=== PATIENT | female | born 1950 | race Hispanic/Latino ===

== ENCOUNTER 2021-07-11 16:07 | Inpatient (IN) | payer MEDICARE ==
[2021-07-11 22:35] LABS: Bilirubin,Urine NEG (Negative); Blood,Urine SM (Negative); Color,Urine Amber (Yellow); Mucus,Urine 2+ /HPF
[2021-07-12 06:17] LABS: Basophils % (Auto) 0.4 % (0.0-1.8); Eosinophils % (Auto) 0.3 % (0.0-4.3); Hematocrit 39.7 % (30.3-42.9); Hemoglobin 13.3 gm/dl (10.1-14.3); Lymphocytes # (Auto) 1.9 K/mm3 (1.2-5.4); Lymphocytes % (Auto) 19.7 % (13.4-35.0); Mean Corpuscular HGB Conc 34 % (30-34); Mean Corpuscular Volume 91 fl (79-97); Monocytes # (Auto) 0.9 K/mm3 (0.0-0.8); Monocytes % (Auto) 9.3 % (0.0-7.3); Platelet Count 258 K/mm3 (140-440); Red Blood Count 4.35 M/mm3 (3.65-5.03); Red Cell Distribution Width 14.9 % (13.2-15.2)
[2021-07-12 06:38] LABS: Alanine Aminotransferase 22 units/L (7-56); BUN/Creatinine Ratio 26; Blood Urea Nitrogen 21 mg/dL (7-17); Calcium 9.7 mg/dL (8.4-10.2); HDL Cholesterol 62 mg/dL (40-59); Hemolysis Index 3; LDL Cholesterol,Direct 60 mg/dL (50-130)
--- NOTE | 2021-07-12 10:57 | History and Physical Report ---
GP History & Physical - History of Present Illness Date of admission: 07/11/21 Date of Examination: 07/12/21 Reason for Admission: Danger to self, Failure of Outpatient Treatment, Severe anxiety/depression History of Present Illness: Per Admission note: Pt present with altered mental status exhibiting delusional behavior, hallucinations and tangential speech. Emeterio Allen is a 71y/o female patient I evaluated today. The patient is calm, and cooperative. She is polite and pleasant. As we are walking to her room for me to speak with her, I hear the patient speaking softly to herself. She tells me she was admitted into the hospital because "I wasn't focussing and calling people all different kinds of names." The patient says "I was delusional, seeing demons and waterfalls and fearing voices telling me to do all kinds of stuff." She says "it was scary." The patient tells me "I thought I wanted to kill myself but I realize I got too much to live for." She says the only psych history she has is depression in which she takes celexa. The patient denies any illicit drug use, alcohol or nicotine. 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 Access to guns/weapons: Denies Education: History of Abuse: None reported Legal History: Denies REVIEW OF SYSTEMS Constitutional: Negative for weight loss ENT: Negative for stridor Respiratory: Negative for cough or hemoptysis All other systems reviewed and are negative MENTAL STATUS EXAMINATION General Appearance and Behavior: Age appropriate, good hygiene, wearing appropriate clothes, good eye contact Cooperation: Participating/engaged, but Guarded Psychomotor Behavior: Psychomotor normal Mood: better Affect and affective range: Congruent with mood Thought Process: circumstantial Thought Content: hallucinations Speech: Normal rate, volume and rhythm Intellectual Functioning: Average 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 Patient enrolled in individual and group therapeutic sessions and encouraged to attend. Patient provided with a safe and structured environment. Patient's physical health needs will be addressed by the Hospitalist. Hospitalist Consulted Labs including CBC, CMP, Lipid profile and Hemoglobin A1C levels ordered for baseline reference Social Assessment will be completed and the Ediphone Operator will work with patient and family to ensure a suitable and safe disposition Medication adjustment will be made as clinically indicated Restarted home meds Increased Home Risperidone 0.5mg po BID Usual Wellness [place]odaism/Preservation: - Start Trazodone 50 mg po QHS & 50 mg po QHS PRN between 10 PM & 2 AM for insomnia - Start Melatonin 5 mg po QHS to promote circadian rhythm The patient agreed on the treatment plan, understood the risk, benefit, alternative treatment, potential consequence of no treatment, and gave informed consent. Estimated days: 5 Post hospital care: primary care provider, psychiatric provider Case staffed with Dr. Waller Legal Status: Voluntary Reaction to Hospitalization: Accepting Medications and Allergies Allergies Allergy/AdvReac Type Severity Reaction Status Date / Time latex Allergy Unknown Verified 07/11/21 18:48 Home Medications Medication Instructions Recorded Confirmed Last Taken Type Levothyroxine [Synthroid] 25 mcg PO QAM 07/11/21 07/11/21 Unknown History Sertraline [Zoloft] 50 mg PO QDAY 07/11/21 07/11/21 Unknown History Simvastatin 10 mg PO HS 07/11/21 07/11/21 Unknown History hydroCHLOROthiazide [HCTZ] 25 mg PO DAILY 07/11/21 07/11/21 Unknown History risperiDONE [RisperDAL] 0.5 mg PO HS 07/11/21 07/11/21 Unknown History Results - Results Labs/Vitals: Laboratory Last Values WBC 9.9 K/mm3 (4.5-11.0) 07/12/21 05:52 RBC 4.35 M/mm3 (3.65-5.03) 07/12/21 05:52 Hgb 13.3 gm/dl (10.1-14.3) 07/12/21 05:52 Hct 39.7 % (30.3-42.9) 07/12/21 05:52 MCV 91 fl (79-97) 07/12/21 05:52 MCH 31 pg (28-32) 07/12/21 05:52 MCHC 34 % (30-34) 07/12/21 05:52 RDW 14.9 % (13.2-15.2) 07/12/21 05:52 Plt Count 258 K/mm3 (140-440) 07/12/21 05:52 Lymph % (Auto) 19.7 % (13.4-35.0) 07/12/21 05:52 [place] % (Auto) 9.3 % (0.0-7.3) H 07/12/21 05:52 Eos % (Auto) 0.3 % (0.0-4.3) 07/12/21 05:52 Baso % (Auto) 0.4 % (0.0-1.8) 07/12/21 05:52 Lymph # (Auto) 1.9 K/mm3 (1.2-5.4) 07/12/21 05:52 [place] # (Auto) 0.9 K/mm3 (0.0-0.8) H 07/12/21 05:52 Eos # (Auto) 0.0 K/mm3 (0.0-0.4) 07/12/21 05:52 Baso # (Auto) 0.0 K/mm3 (0.0-0.1) 07/12/21 05:52 Seg Neutrophils % 70.3 % (40.0-70.0) H 07/12/21 05:52 Seg Neutrophils # 6.9 K/mm3 (1.8-7.7) 07/12/21 05:52 Sodium 141 mmol/L (137-145) 07/12/21 05:52 Potassium 3.7 mmol/L (3.6-5.0) 07/12/21 05:52 Chloride 96.9 mmol/L (98-107) L 07/12/21 05:52 Carbon Dioxide 32 mmol/L (22-30) H 07/12/21 05:52 Anion Gap 16 mmol/L 07/12/21 05:52 BUN 21 mg/dL (7-17) H 07/12/21 05:52 Creatinine 0.8 mg/dL (0.6-1.2) 07/12/21 05:52 Estimated GFR > 60 ml/min 07/12/21 05:52 BUN/Creatinine Ratio 26 % 07/12/21 05:52 Glucose 105 mg/dL (65-100) H 07/12/21 05:52 POC Glucose 95 mg/dL (70-105) 07/11/21 21:27 Hemoglobin A1c 5.9 % (4-6) 07/12/21 05:52 Calcium 9.7 mg/dL (8.4-10.2) 07/12/21 05:52 Total Bilirubin 0.50 mg/dL (0.1-1.2) 07/12/21 05:52 AST 44 units/L (5-40) H 07/12/21 05:52 ALT 22 units/L (7-56) 07/12/21 05:52 Alkaline Phosphatase 95 units/L (35-129) 07/12/21 05:52 Total Protein 8.0 g/dL (6.3-8.2) 07/12/21 05:52 Albumin 4.0 g/dL (3.9-5) 07/12/21 05:52 Albumin/Globulin Ratio 1.0 % 07/12/21 05:52 Triglycerides 75 mg/dL (2-149) 07/12/21 05:52 Cholesterol 143 mg/dL (50-199) 07/12/21 05:52 LDL Cholesterol Direct 60 mg/dL (50-130) 07/12/21 05:52 HDL Cholesterol 62 mg/dL (40-59) H 07/12/21 05:52 Cholesterol/HDL Ratio 2.30 % 07/12/21 05:52 TSH 2.500 mlU/mL (0.270-4.200) 07/12/21 05:52 Urine Color [place] (Yellow) 07/11/21 21:00 Urine Turbidity Cloudy (Clear) 07/11/21 21:00 Urine pH 5.0 (5.0-7.0) 07/11/21 21:00 Ur Specific [place] 1.021 (1.003-1.030) 07/11/21 21:00 Urine Protein 30 mg/dl mg/dL (Negative) 07/11/21 21:00 Urine Glucose (UA) Neg mg/dL (Negative) 07/11/21 21:00 Urine Ketones 20 mg/dL (Negative) 07/11/21 21:00 Urine Blood Sm (Negative) 07/11/21 21:00 Urine Nitrite Neg (Negative) 07/11/21 21:00 Urine Bilirubin Neg (Negative) 07/11/21 21:00 Urine Urobilinogen 2.0 mg/dL (<2.0) 07/11/21 21:00 Ur Leukocyte Esterase Mod (Negative) 07/11/21 21:00 Urine WBC (Auto) 23.0 /HPF (0.0-6.0) H 07/11/21 21:00 Urine RBC (Auto) 4.0 /HPF (0.0-6.0) 07/11/21 21:00 U Epithel Cells (Auto) 3.0 /HPF (0-13.0) 07/11/21 21:00 Urine Mucus 2+ /HPF 07/11/21 21:00 Urine Yeast (Budding) 2+ /HPF 07/11/21 21:00 Last Vital Signs Temp 98.9 F 07/12/21 06:13 Pulse 121 H 07/12/21 06:13 Resp 18 07/12/21 06:13 BP 125/72 07/12/21 06:13 Pulse Ox 98 07/12/21 06:13 Physical Examination - Constitutional Vitals: Vital Signs Temp Pulse Resp BP Pulse Ox 98.9 F 121 H 18 125/72 98 07/12/21 06:13 07/12/21 06:13 07/12/21 06:13 07/12/21 06:13 07/12/21 06:13 Temperature -Last 24 Hours Temperature 98.9 F Temperature 98.4 F Temperature 0 F Mental Status Exam - Vital signs Last Vital Signs Temp 98.9 F 07/12/21 06:13 Pulse 121 H 07/12/21 06:13 Resp 18 07/12/21 06:13 BP 125/72 07/12/21 06:13 Pulse Ox 98 07/12/21 06:13 Physician Certification - Certification Statement Physician Certification Statement: This is an acknowledgement statement that EMETERIO ALLEN is a 71 year old F who requires inpatient psychiatric admission for treatment which could reasonably be expected to improve the patient's condition for Estimated period of time patient will need to remain in the hospital: [ ] Plan for post-hospital care: [ ]
[2021-07-12] MEDS ORDERED: NON-FORMULARY EACH (Risperidone [Risperdal] 0.5 MG Tablet) PO SCH (11:15)
--- NOTE | 2021-07-12 11:26 | History and Physical Report ---
History of Present Illness Date of admission: 07/11/21 21:29 Medications and Allergies Allergies Allergy/AdvReac Type Severity Reaction Status Date / Time latex Allergy Unknown Verified 07/11/21 18:48 Home Medications Medication Instructions Recorded Confirmed Last Taken Type Levothyroxine [Synthroid] 25 mcg PO QAM 07/11/21 07/11/21 Unknown History Sertraline [Zoloft] 50 mg PO QDAY 07/11/21 07/11/21 Unknown History Simvastatin 10 mg PO HS 07/11/21 07/11/21 Unknown History hydroCHLOROthiazide [HCTZ] 25 mg PO DAILY 07/11/21 07/11/21 Unknown History risperiDONE [RisperDAL] 0.5 mg PO HS 07/11/21 07/11/21 Unknown History Active Meds: Active Medications Hydrochlorothiazide (Hydrochlorothiazide 25 Mg Tab) 25 mg PO DAILY [facility] Levothyroxine Sodium (Levothyroxine 25 Mcg Tab) 25 mcg PO QAM@0600 [facility] Pravastatin Sodium (Pravastatin 20 Mg Tab) 20 mg PO QHS [facility] Risperidone (Risperidone 0.25 Mg Tab) 0.5 mg PO BID [facility] Sertraline HCl (Sertraline 50 Mg Tab) 50 mg PO QDAY [facility] Exam - Constitutional Vitals: Temp Pulse Resp BP Pulse Ox 98.9 F 107 H 18 130/94 97 07/12/21 06:13 07/12/21 10:19 07/12/21 06:13 07/12/21 10:19 07/12/21 10:19 Results - Labs CBC & Chem 7: 07/12/21 05:52 07/12/21 05:52 Labs: Abnormal lab results 07/11/21 07/12/21 07/12/21 Range/Units 21:00 05:52 05:52 [place] % (Auto) 9.3 H (0.0-7.3) % [place] # (Auto) 0.9 H (0.0-0.8) K/mm3 Seg Neutrophils % 70.3 H (40.0-70.0) % Chloride 96.9 L (98-107) mmol/L Carbon Dioxide 32 H (22-30) mmol/L BUN 21 H (7-17) mg/dL Glucose 105 H (65-100) mg/dL AST 44 H (5-40) units/L HDL Cholesterol 62 H (40-59) mg/dL Urine WBC (Auto) 23.0 H (0.0-6.0) /HPF Assessment and Plan - Patient Problems (1) UTI (urinary tract infection) Current Visit: Yes Status: Acute
[2021-07-12] MEDS: levoFLOXacin 500 MG TAB PO SCH (11:46)
[2021-07-12] MEDS: LEVOTHYROXINE 25 MCG TAB PO SCH (11:46)
[2021-07-12] MEDS: hydroCHLOROthiazide 25 MG TAB PO SCH (11:47)
[2021-07-12] MEDS: SERTRALINE 50 MG TAB PO SCH (11:47)
[2021-07-12] MEDS: risperiDONE 0.25 MG TAB PO SCH ×2 (11:47→21:00)
--- NOTE | 2021-07-12 18:31 | Consultation ---
History of Present Illness - Reason for Consult Consult date: 07/12/21 Medications and Allergies Allergies Allergy/AdvReac Type Severity Reaction Status Date / Time latex Allergy Unknown Verified 07/11/21 18:48 Home Medications Medication Instructions Recorded Confirmed Last Taken Type Levothyroxine [Synthroid] 25 mcg PO QAM 07/11/21 07/11/21 Unknown History Sertraline [Zoloft] 50 mg PO QDAY 07/11/21 07/11/21 Unknown History Simvastatin 10 mg PO 07/11/21 07/11/21 Unknown History hydroCHLOROthiazide [HCTZ] 25 mg PO DAILY 07/11/21 07/11/21 Unknown History risperiDONE [RisperDAL] 0.5 mg PO 07/11/21 07/11/21 Unknown History Active Meds: Active Medications Hydrochlorothiazide (Hydrochlorothiazide 25 Mg Tab) 25 mg PO DAILY [facility] Last Admin: 07/12/21 11:47 Dose: 25 mg Documented by: Levofloxacin (Levofloxacin 500 Mg Tab) 500 mg PO Q24HR [facility]; Protocol Stop: 07/16/21 11:59 Last Admin: 07/12/21 11:46 Dose: 500 mg Documented by: Levothyroxine Sodium (Levothyroxine 25 Mcg Tab) 25 mcg PO QAM@0600 [facility] Last Admin: 07/12/21 11:46 Dose: 25 mcg Documented by: Pravastatin Sodium (Pravastatin 20 Mg Tab) 20 mg PO QHS [facility] Risperidone (Risperidone 0.25 Mg Tab) 0.5 mg PO BID [facility] Last Admin: 07/12/21 11:47 Dose: 0.5 mg Documented by: Sertraline HCl (Sertraline 50 Mg Tab) 50 mg PO QDAY [facility] Last Admin: 07/12/21 11:47 Dose: 50 mg Documented by: Exam - Constitutional Vitals: Temp Pulse Resp BP Pulse Ox 98.9 F 107 H 18 130/94 97 07/12/21 06:13 07/12/21 10:19 07/12/21 06:13 07/12/21 10:19 07/12/21 10:19 Results - Labs CBC & Chem 7: 07/12/21 05:52 07/12/21 05:52 Labs: Abnormal lab results 07/11/21 07/12/21 07/12/21 Range/Units 21:00 05:52 05:52 [place] % (Auto) 9.3 H (0.0-7.3) % [place] # (Auto) 0.9 H (0.0-0.8) K/mm3 Seg Neutrophils % 70.3 H (40.0-70.0) % Chloride 96.9 L (98-107) mmol/L Carbon Dioxide 32 H (22-30) mmol/L BUN 21 H (7-17) mg/dL Glucose 105 H (65-100) mg/dL AST 44 H (5-40) units/L HDL Cholesterol 62 H (40-59) mg/dL Urine WBC (Auto) 23.0 H (0.0-6.0) /HPF Assessment and Plan - Patient Problems (1) UTI (urinary tract infection) Current Visit: Yes Status: Acute
[2021-07-12] MEDS: PRAVASTATIN 20 MG TAB PO SCH (21:00)
[2021-07-12] MEDS ORDERED: NON-FORMULARY EACH (Simvastatin [Simvastatin] 10 MG Tablet) PO SCH (22:00)
[2021-07-13] MEDS: LEVOTHYROXINE 25 MCG TAB PO SCH (05:15)
--- NOTE | 2021-07-13 09:17 | Progress Note ---
Subjective Date of service: 07/13/21 Principal diagnosis: MDD Subjective Comment: The patient was seen today. She is in her room sitting on side of the bed. The patient says she pushed her night table back to keep someone from falling. She says she feels better, but there still seems to be some psychosis. The patient denies hallucinations. But she is observed talking beneath her breath. She says "eat three meals a day and drink plenty of water." When I ask the patient who was she speaking too, she replies "nobody." She denies SI/HI. 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 Patient enrolled in individual and group therapeutic sessions and encouraged to attend. Patient provided with a safe and structured environment. Patient's physical health needs will be addressed by the Hospitalist. Hospitalist Consulted Labs including CBC, CMP, Lipid profile and Hemoglobin A1C levels ordered for baseline reference Social Assessment will be completed and the Auxiliary Equipment Tender will work with patient and family to ensure a suitable and safe disposition Medication adjustment will be made as clinically indicated Increased Home Risperidone 0.5mg po BID yesterday Usual Wellness [place]/Preservation: - Start Trazodone 50 mg po QHS & 50 mg po QHS PRN between 10 PM & 2 AM for insomnia - Start Melatonin 5 mg po QHS to promote circadian rhythm The patient agreed on the treatment plan, understood the risk, benefit, alternative treatment, potential consequence of no treatment, and gave informed consent. Estimated days: 5 Post hospital care: primary care provider, psychiatric provider Case staffed with Dr. Waller Medications and Allergies Allergies Allergy/AdvReac Type Severity Reaction Status Date / Time latex Allergy Unknown Verified 07/11/21 18:48 Home Medications Medication Instructions Recorded Confirmed Last Taken Type Levothyroxine [Synthroid] 25 mcg PO QAM 07/11/21 07/11/21 Unknown History Sertraline [Zoloft] 50 mg PO QDAY 07/11/21 07/11/21 Unknown History Simvastatin 10 mg PO 07/11/21 07/11/21 Unknown History hydroCHLOROthiazide [HCTZ] 25 mg PO DAILY 07/11/21 07/11/21 Unknown History risperiDONE [RisperDAL] 0.5 mg PO HS 07/11/21 07/11/21 Unknown History Active Meds: Active Medications Hydrochlorothiazide (Hydrochlorothiazide 25 Mg Tab) 25 mg PO DAILY [facility] Last Admin: 07/12/21 11:47 Dose: 25 mg Documented by: Levofloxacin (Levofloxacin 500 Mg Tab) 500 mg PO Q24HR [facility]; Protocol Stop: 07/16/21 11:59 Last Admin: 07/12/21 11:46 Dose: 500 mg Documented by: Levothyroxine Sodium (Levothyroxine 25 Mcg Tab) 25 mcg PO QAM@0600 [facility] Last Admin: 07/13/21 05:15 Dose: 25 mcg Documented by: Pravastatin Sodium (Pravastatin 20 Mg Tab) 20 mg PO QHS [facility] Last Admin: 07/12/21 21:00 Dose: 20 mg Documented by: Risperidone (Risperidone 0.25 Mg Tab) 0.5 mg PO BID [facility] Last Admin: 07/12/21 21:00 Dose: 0.5 mg Documented by: Sertraline HCl (Sertraline 50 Mg Tab) 50 mg PO QDAY [facility] Last Admin: 07/12/21 11:47 Dose: 50 mg Documented by: Results - Results Labs/Vitals: Laboratory Last Values WBC 9.9 K/mm3 (4.5-11.0) 07/12/21 05:52 RBC 4.35 M/mm3 (3.65-5.03) 07/12/21 05:52 Hgb 13.3 gm/dl (10.1-14.3) 07/12/21 05:52 Hct 39.7 % (30.3-42.9) 07/12/21 05:52 MCV 91 fl (79-97) 07/12/21 05:52 MCH 31 pg (28-32) 07/12/21 05:52 MCHC 34 % (30-34) 07/12/21 05:52 RDW 14.9 % (13.2-15.2) 07/12/21 05:52 Plt Count 258 K/mm3 (140-440) 07/12/21 05:52 Lymph % (Auto) 19.7 % (13.4-35.0) 07/12/21 05:52 [place] % (Auto) 9.3 % (0.0-7.3) H 07/12/21 05:52 Eos % (Auto) 0.3 % (0.0-4.3) 07/12/21 05:52 Baso % (Auto) 0.4 % (0.0-1.8) 07/12/21 05:52 Lymph # (Auto) 1.9 K/mm3 (1.2-5.4) 07/12/21 05:52 [place] # (Auto) 0.9 K/mm3 (0.0-0.8) H 07/12/21 05:52 Eos # (Auto) 0.0 K/mm3 (0.0-0.4) 07/12/21 05:52 Baso # (Auto) 0.0 K/mm3 (0.0-0.1) 07/12/21 05:52 Seg Neutrophils % 70.3 % (40.0-70.0) H 07/12/21 05:52 Seg Neutrophils # 6.9 K/mm3 (1.8-7.7) 07/12/21 05:52 Sodium 141 mmol/L (137-145) 07/12/21 05:52 Potassium 3.7 mmol/L (3.6-5.0) 07/12/21 05:52 Chloride 96.9 mmol/L (98-107) L 07/12/21 05:52 Carbon Dioxide 32 mmol/L (22-30) H 07/12/21 05:52 Anion Gap 16 mmol/L 07/12/21 05:52 BUN 21 mg/dL (7-17) H 07/12/21 05:52 Creatinine 0.8 mg/dL (0.6-1.2) 07/12/21 05:52 Estimated GFR > 60 ml/min 07/12/21 05:52 BUN/Creatinine Ratio 26 % 07/12/21 05:52 Glucose 105 mg/dL (65-100) H 07/12/21 05:52 POC Glucose 95 mg/dL (70-105) 07/11/21 21:27 Hemoglobin A1c 5.9 % (4-6) 07/12/21 05:52 Calcium 9.7 mg/dL (8.4-10.2) 07/12/21 05:52 Total Bilirubin 0.50 mg/dL (0.1-1.2) 07/12/21 05:52 AST 44 units/L (5-40) H 07/12/21 05:52 ALT 22 units/L (7-56) 07/12/21 05:52 Alkaline Phosphatase 95 units/L (35-129) 07/12/21 05:52 Total Protein 8.0 g/dL (6.3-8.2) 07/12/21 05:52 Albumin 4.0 g/dL (3.9-5) 07/12/21 05:52 Albumin/Globulin Ratio 1.0 % 07/12/21 05:52 Triglycerides 75 mg/dL (2-149) 07/12/21 05:52 Cholesterol 143 mg/dL (50-199) 07/12/21 05:52 LDL Cholesterol Direct 60 mg/dL (50-130) 07/12/21 05:52 HDL Cholesterol 62 mg/dL (40-59) H 07/12/21 05:52 Cholesterol/HDL Ratio 2.30 % 07/12/21 05:52 TSH 2.500 mlU/mL (0.270-4.200) 07/12/21 05:52 Urine Color [place] (Yellow) 07/11/21 21:00 Urine Turbidity Cloudy (Clear) 07/11/21 21:00 Urine pH 5.0 (5.0-7.0) 07/11/21 21:00 Ur Specific [place] 1.021 (1.003-1.030) 07/11/21 21:00 Urine Protein 30 mg/dl mg/dL (Negative) 07/11/21 21:00 Urine Glucose (UA) Neg mg/dL (Negative) 07/11/21 21:00 Urine Ketones 20 mg/dL (Negative) 09/28/21 21:00 Urine Blood Sm (Negative) 07/11/21 21:00 Urine Nitrite Neg (Negative) 07/11/21 21:00 Urine Bilirubin Neg (Negative) 07/11/21 21:00 Urine Urobilinogen 2.0 mg/dL (<2.0) 07/11/21 21:00 Ur Leukocyte Esterase Mod (Negative) 07/11/21 21:00 Urine WBC (Auto) 23.0 /HPF (0.0-6.0) H 07/11/21 21:00 Urine RBC (Auto) 4.0 /HPF (0.0-6.0) 07/11/21 21:00 U Epithel Cells (Auto) 3.0 /HPF (0-13.0) 07/11/21 21:00 Urine Mucus 2+ /HPF 07/11/21 21:00 Urine Yeast (Budding) 2+ /HPF 07/11/21 21:00 Last Vital Signs Temp 98.3 F 07/12/21 19:30 Pulse 118 H 07/12/21 20:00 Resp 16 07/12/21 19:30 BP 114/75 07/12/21 19:30 Pulse Ox 97 07/12/21 10:19
[2021-07-13] MEDS: levoFLOXacin 500 MG TAB PO SCH (09:37)
[2021-07-13] MEDS: risperiDONE 0.25 MG TAB PO SCH ×2 (09:37→21:03)
[2021-07-13] MEDS: hydroCHLOROthiazide 25 MG TAB PO SCH (09:38)
[2021-07-13] MEDS: SERTRALINE 50 MG TAB PO SCH (09:38)
[2021-07-13] MEDS: PRAVASTATIN 20 MG TAB PO SCH (21:03)
[2021-07-14] MEDS: LEVOTHYROXINE 25 MCG TAB PO SCH (06:25)
[2021-07-14] MEDS: levoFLOXacin 500 MG TAB PO SCH (11:27)
[2021-07-14] MEDS: risperiDONE 0.25 MG TAB PO SCH ×3 (11:27→22:12)
[2021-07-14] MEDS: SERTRALINE 50 MG TAB PO SCH (11:28)
[2021-07-14] MEDS: hydroCHLOROthiazide 25 MG TAB PO SCH (11:28)
--- NOTE | 2021-07-14 13:08 | Progress Note ---
Subjective Date of service: 07/14/21 Principal diagnosis: MDD Subjective Comment: 07/13/2021: The patient was seen today. She is in her room sitting on side of the bed. The patient says she pushed her night table back to keep someone from falling. She says she feels better, but there still seems to be some psychosis. The patient denies hallucinations. But she is observed talking beneath her breath. She says "eat three meals a day and drink plenty of water." When I ask the patient who was she speaking too, she replies "nobody." She denies SI/HI. 07/14/2021:The patient was seen eating breakfast. She reports mood as "nice and quiet." the patient reports that depression is improving " much better." The patient states " I was hallucinating when I came here- staying up too many hours, I just have to remind myself to get some sleep." She reports sleep and appetite as good. The patient denies any current suicidal/homicidal ideation and denies hallucinations. REVIEW OF SYSTEMS Constitutional: Negative for weight loss ENT: Negative for stridor Respiratory: Negative for cough or hemoptysis All other systems reviewed and are negative MENTAL STATUS EXAMINATION General Appearance and Behavior: Age appropriate, good hygiene, wearing appropriate clothes, good eye contact Cooperation: Participating/engaged, but Guarded Psychomotor Behavior: Psychomotor normal Mood: "nice and quiet" Affect and affective range: Congruent with mood Thought Process: circumstantial Thought Content: Not suicidal Speech: Normal rate, volume and rhythm Intellectual Functioning: Average Suicidal Ideation: Denies Homicidal Ideation: Denies Hallucinations: Denies Impulse Control: Impaired Insight and Judgment: Limited insight and judgment Memory: Limited Attention: Normal Orientation: Alert, Assessment and Plan (1) Major Depressive Disorder, Severe, with Psychotic Features Current Visit: Yes Status: Acute Treatment Plan Patient admitted for inpatient psychiatric evaluation, medication adjustment and close monitoring The patient's behavior, mood, sleep and appetite will be closely monitored. Patient enrolled in individual and group therapeutic sessions and encouraged to attend. Patient provided with a safe and structured environment. Patient's physical health needs will be addressed by the Hospitalist. Hospitalist Consulted Labs including CBC, CMP, Lipid profile and Hemoglobin A1C levels ordered for baseline reference Social Assessment will be completed and the Tunnel Heading Inspector will work with patient and family to ensure a suitable and safe disposition Medication adjustment will be made as clinically indicated Continue Risperidone 0.5mg po BID No changes made today Usual Wellness Jewish/Preservation: - Start Trazodone 50 mg po QHS & 50 mg po QHS PRN between 10 PM & 2 AM for insomnia - Start Melatonin 5 mg po QHS to promote circadian rhythm The patient agreed on the treatment plan, understood the risk, benefit, alternative treatment, potential consequence of no treatment, and gave informed consent. Estimated days: 4 Post hospital care: primary care provider, psychiatric provider Case staffed with Dr. Waller Medications and Allergies Allergies Allergy/AdvReac Type Severity Reaction Status Date / Time latex Allergy Unknown Verified 07/11/21 18:48 Home Medications Medication Instructions Recorded Confirmed Last Taken Type Levothyroxine [Synthroid] 25 mcg PO QAM 07/11/21 07/11/21 Unknown History Sertraline [Zoloft] 50 mg PO QDAY 07/11/21 07/11/21 Unknown History Simvastatin 10 mg PO 07/11/21 07/11/21 Unknown History hydroCHLOROthiazide [HCTZ] 25 mg PO DAILY 07/11/21 07/11/21 Unknown History risperiDONE [RisperDAL] 0.5 mg PO 07/11/21 07/11/21 Unknown History Active Meds: Active Medications Hydrochlorothiazide (Hydrochlorothiazide 25 Mg Tab) 25 mg PO DAILY [facility] Last Admin: 07/14/21 11:28 Dose: 25 mg Documented by: Levofloxacin (Levofloxacin 500 Mg Tab) 500 mg PO Q24HR [facility]; Protocol Stop: 07/16/21 11:59 Last Admin: 07/14/21 11:27 Dose: 500 mg Documented by: Levothyroxine Sodium (Levothyroxine 25 Mcg Tab) 25 mcg PO QAM@0600 [facility] Last Admin: 07/14/21 06:25 Dose: 25 mcg Documented by: Pravastatin Sodium (Pravastatin 20 Mg Tab) 20 mg PO QHS [facility] Last Admin: 07/13/21 21:03 Dose: 20 mg Documented by: Risperidone (Risperidone 0.25 Mg Tab) 0.5 mg PO BID [facility] Last Admin: 07/14/21 11:27 Dose: 0.5 mg Documented by: Sertraline HCl (Sertraline 50 Mg Tab) 50 mg PO QDAY [facility] Last Admin: 07/14/21 11:28 Dose: 50 mg Documented by: Results - Results Labs/Vitals: Laboratory Last Values WBC 9.9 K/mm3 (4.5-11.0) 07/12/21 05:52 RBC 4.35 M/mm3 (3.65-5.03) 07/12/21 05:52 Hgb 13.3 gm/dl (10.1-14.3) 07/12/21 05:52 Hct 39.7 % (30.3-42.9) 07/12/21 05:52 MCV 91 fl (79-97) 07/12/21 05:52 MCH 31 pg (28-32) 07/12/21 05:52 MCHC 34 % (30-34) 07/12/21 05:52 RDW 14.9 % (13.2-15.2) 07/12/21 05:52 Plt Count 258 K/mm3 (140-440) 07/12/21 05:52 Lymph % (Auto) 19.7 % (13.4-35.0) 07/12/21 05:52 [place] % (Auto) 9.3 % (0.0-7.3) H 07/12/21 05:52 Eos % (Auto) 0.3 % (0.0-4.3) 07/12/21 05:52 Baso % (Auto) 0.4 % (0.0-1.8) 07/12/21 05:52 Lymph # (Auto) 1.9 K/mm3 (1.2-5.4) 07/12/21 05:52 [place] # (Auto) 0.9 K/mm3 (0.0-0.8) H 07/12/21 05:52 Eos # (Auto) 0.0 K/mm3 (0.0-0.4) 07/12/21 05:52 Baso # (Auto) 0.0 K/mm3 (0.0-0.1) 07/12/21 05:52 Seg Neutrophils % 70.3 % (40.0-70.0) H 07/12/21 05:52 Seg Neutrophils # 6.9 K/mm3 (1.8-7.7) 07/12/21 05:52 Sodium 141 mmol/L (137-145) 07/12/21 05:52 Potassium 3.7 mmol/L (3.6-5.0) 07/12/21 05:52 Chloride 96.9 mmol/L (98-107) L 07/12/21 05:52 Carbon Dioxide 32 mmol/L (22-30) H 07/12/21 05:52 Anion Gap 16 mmol/L 07/12/21 05:52 BUN 21 mg/dL (7-17) H 07/12/21 05:52 Creatinine 0.8 mg/dL (0.6-1.2) 07/12/21 05:52 Estimated GFR > 60 ml/min 07/12/21 05:52 BUN/Creatinine Ratio 26 % 07/12/21 05:52 Glucose 105 mg/dL (65-100) H 07/12/21 05:52 POC Glucose 95 mg/dL (70-105) 07/11/21 21:27 Hemoglobin A1c 5.9 % (4-6) 07/12/21 05:52 Calcium 9.7 mg/dL (8.4-10.2) 07/12/21 05:52 Total Bilirubin 0.50 mg/dL (0.1-1.2) 07/12/21 05:52 AST 44 units/L (5-40) H 07/12/21 05:52 ALT 22 units/L (7-56) 07/12/21 05:52 Alkaline Phosphatase 95 units/L (35-129) 07/12/21 05:52 Total Protein 8.0 g/dL (6.3-8.2) 07/12/21 05:52 Albumin 4.0 g/dL (3.9-5) 07/12/21 05:52 Albumin/Globulin Ratio 1.0 % 07/12/21 05:52 Triglycerides 75 mg/dL (2-149) 07/12/21 05:52 Cholesterol 143 mg/dL (50-199) 07/12/21 05:52 LDL Cholesterol Direct 60 mg/dL (50-130) 07/12/21 05:52 HDL Cholesterol 62 mg/dL (40-59) H 07/12/21 05:52 Cholesterol/HDL Ratio 2.30 % 07/12/21 05:52 TSH 2.500 mlU/mL (0.270-4.200) 07/12/21 05:52 Urine Color Lauren (Yellow) 07/11/21 21:00 Urine Turbidity Cloudy (Clear) 07/11/21 21:00 Urine pH 5.0 (5.0-7.0) 07/11/21 21:00 Ur Specific [place] 1.021 (1.003-1.030) 07/11/21 21:00 Urine Protein 30 mg/dl mg/dL (Negative) 07/11/21 21:00 Urine Glucose (UA) Neg mg/dL (Negative) 07/11/21 21:00 Urine Ketones 20 mg/dL (Negative) 07/11/21 21:00 Urine Blood Sm (Negative) 07/11/21 21:00 Urine Nitrite Neg (Negative) 07/11/21 21:00 Urine Bilirubin Neg (Negative) 07/11/21 21:00 Urine Urobilinogen 2.0 mg/dL (<2.0) 07/11/21 21:00 Ur Leukocyte Esterase Mod (Negative) 07/11/21 21:00 Urine WBC (Auto) 23.0 /HPF (0.0-6.0) H 07/11/21 21:00 Urine RBC (Auto) 4.0 /HPF (0.0-6.0) 07/11/21 21:00 U Epithel Cells (Auto) 3.0 /HPF (0-13.0) 07/11/21 21:00 Urine Mucus 2+ /HPF 07/11/21 21:00 Urine Yeast (Budding) 2+ /HPF 07/11/21 21:00 Last Vital Signs Temp 98.9 F 07/14/21 07:48 Pulse 112 H 07/14/21 07:48 Resp 18 07/14/21 07:48 BP 140/90 07/14/21 07:48 Pulse Ox 95 07/14/21 07:48
[2021-07-14] MEDS: PRAVASTATIN 20 MG TAB PO SCH ×2 (21:15→22:12)
[2021-07-15] MEDS: LEVOTHYROXINE 25 MCG TAB PO SCH (05:15)
--- NOTE | 2021-07-15 08:39 | Progress Note ---
Subjective Date of service: 07/15/21 Principal diagnosis: MDD Subjective Comment: 07/13/2021: The patient was seen today. She is in her room sitting on side of the bed. The patient says she pushed her night table back to keep someone from falling. She says she feels better, but there still seems to be some psychosis. The patient denies hallucinations. But she is observed talking beneath her breath. She says "eat three meals a day and drink plenty of water." When I ask the patient who was she speaking too, she replies "nobody." She denies SI/HI. 07/14/2021:The patient was seen eating breakfast. She reports mood as "nice and quiet." the patient reports that depression is improving " much better." The patient states " I was hallucinating when I came here- staying up too many hours, I just have to remind myself to get some sleep." She reports sleep and appetite as good. The patient denies any current suicidal/homicidal ideation and denies hallucinations. 07/15/2021: The patient was seen in the activity room, she reports doing well. The patient is isolative. The patient reports mood as "calm" states sleep and appetite as good. The patient denies any current suicidal/homicidal ideation and denies hallucinations. No changes made today. REVIEW OF SYSTEMS Constitutional: Negative for weight loss ENT: Negative for stridor Respiratory: Negative for cough or hemoptysis All other systems reviewed and are negative MENTAL STATUS EXAMINATION General Appearance and Behavior: Age appropriate, good hygiene, wearing appropriate clothes, good eye contact Cooperation: Participating/engaged, but Guarded Psychomotor Behavior: Psychomotor normal Mood: "calm" Affect and affective range: Congruent with mood Thought Process: Circumstantial Thought Content: Not suicidal Speech: Normal rate, volume and rhythm Intellectual Functioning: Average Suicidal Ideation: Denies Homicidal Ideation: Denies Hallucinations: Denies Impulse Control: Impaired Insight and Judgment: Limited insight and judgment Memory: Limited Attention: Normal Orientation: Alert, Assessment and Plan (1) Major Depressive Disorder, Severe, with Psychotic Features Current Visit: Yes Status: Acute Treatment Plan Patient admitted for inpatient psychiatric evaluation, medication adjustment and close monitoring The patient's behavior, mood, sleep and appetite will be closely monitored. Patient enrolled in individual and group therapeutic sessions and encouraged to attend. Patient provided with a safe and structured environment. Patient's physical health needs will be addressed by the Hospitalist. Hospitalist Consulted Labs including CBC, CMP, Lipid profile and Hemoglobin A1C levels ordered for baseline reference Social Assessment will be completed and the Net Developer will work with patient and family to ensure a suitable and safe disposition Medication adjustment will be made as clinically indicated No changes made today Continue Risperidone 0.5mg po BID No changes made today Usual Wellness Adventist/Preservation: - Start Trazodone 50 mg po QHS & 50 mg po QHS PRN between 10 PM & 2 AM for insomnia - Start Melatonin 5 mg po QHS to promote circadian rhythm The patient agreed on the treatment plan, understood the risk, benefit, alternative treatment, potential consequence of no treatment, and gave informed consent. Estimated days: 4 Post hospital care: primary care provider, psychiatric provider Case staffed with Dr. Waller Medications and Allergies Allergies Allergy/AdvReac Type Severity Reaction Status Date / Time latex Allergy Unknown Verified 07/11/21 18:48 Medications and Allergies Allergies Allergy/AdvReac Type Severity Reaction Status Date / Time latex Allergy Unknown Verified 07/11/21 18:48 Home Medications Medication Instructions Recorded Confirmed Last Taken Type Levothyroxine [Synthroid] 25 mcg PO QAM 07/11/21 07/11/21 Unknown History Sertraline [Zoloft] 50 mg PO QDAY 07/11/21 07/11/21 Unknown History Simvastatin 10 mg PO HS 07/11/21 07/11/21 Unknown History hydroCHLOROthiazide [HCTZ] 25 mg PO DAILY 07/11/21 07/11/21 Unknown History risperiDONE [RisperDAL] 0.5 mg PO 07/11/21 07/11/21 Unknown History Active Meds: Active Medications Hydrochlorothiazide (Hydrochlorothiazide 25 Mg Tab) 25 mg PO DAILY [facility] Last Admin: 07/14/21 11:28 Dose: 25 mg Documented by: Levofloxacin (Levofloxacin 500 Mg Tab) 500 mg PO Q24HR [facility]; Protocol Stop: 07/16/21 11:59 Last Admin: 07/14/21 11:27 Dose: 500 mg Documented by: Levothyroxine Sodium (Levothyroxine 25 Mcg Tab) 25 mcg PO QAM@0600 [facility] Last Admin: 07/15/21 05:15 Dose: 25 mcg Documented by: Pravastatin Sodium (Pravastatin 20 Mg Tab) 20 mg PO QHS [facility] Last Admin: 07/14/21 22:12 Dose: Not Given Documented by: Risperidone (Risperidone 0.25 Mg Tab) 0.5 mg PO BID [facility] Last Admin: 07/14/21 22:12 Dose: Not Given Documented by: Sertraline HCl (Sertraline 50 Mg Tab) 50 mg PO QDAY [facility] Last Admin: 07/14/21 11:28 Dose: 50 mg Documented by: Results - Results Labs/Vitals: Laboratory Last Values WBC 9.9 K/mm3 (4.5-11.0) 07/12/21 05:52 RBC 4.35 M/mm3 (3.65-5.03) 07/12/21 05:52 Hgb 13.3 gm/dl (10.1-14.3) 07/12/21 05:52 Hct 39.7 % (30.3-42.9) 07/12/21 05:52 MCV 91 fl (79-97) 07/12/21 05:52 MCH 31 pg (28-32) 07/12/21 05:52 MCHC 34 % (30-34) 07/12/21 05:52 RDW 14.9 % (13.2-15.2) 07/12/21 05:52 Plt Count 258 K/mm3 (140-440) 07/12/21 05:52 Lymph % (Auto) 19.7 % (13.4-35.0) 07/12/21 05:52 [place] % (Auto) 9.3 % (0.0-7.3) H 07/12/21 05:52 Eos % (Auto) 0.3 % (0.0-4.3) 07/12/21 05:52 Baso % (Auto) 0.4 % (0.0-1.8) 07/12/21 05:52 Lymph # (Auto) 1.9 K/mm3 (1.2-5.4) 07/12/21 05:52 [place] # (Auto) 0.9 K/mm3 (0.0-0.8) H 07/12/21 05:52 Eos # (Auto) 0.0 K/mm3 (0.0-0.4) 07/12/21 05:52 Baso # (Auto) 0.0 K/mm3 (0.0-0.1) 07/12/21 05:52 Seg Neutrophils % 70.3 % (40.0-70.0) H 07/12/21 05:52 Seg Neutrophils # 6.9 K/mm3 (1.8-7.7) 07/12/21 05:52 Sodium 141 mmol/L (137-145) 07/12/21 05:52 Potassium 3.7 mmol/L (3.6-5.0) 07/12/21 05:52 Chloride 96.9 mmol/L (98-107) L 07/12/21 05:52 Carbon Dioxide 32 mmol/L (22-30) H 07/12/21 05:52 Anion Gap 16 mmol/L 07/12/21 05:52 BUN 21 mg/dL (7-17) H 07/12/21 05:52 Creatinine 0.8 mg/dL (0.6-1.2) 07/12/21 05:52 Estimated GFR > 60 ml/min 07/12/21 05:52 BUN/Creatinine Ratio 26 % 07/12/21 05:52 Glucose 105 mg/dL (65-100) H 07/12/21 05:52 POC Glucose 95 mg/dL (70-105) 07/11/21 21:27 Hemoglobin A1c 5.9 % (4-6) 07/12/21 05:52 Calcium 9.7 mg/dL (8.4-10.2) 07/12/21 05:52 Total Bilirubin 0.50 mg/dL (0.1-1.2) 07/12/21 05:52 AST 44 units/L (5-40) H 07/12/21 05:52 ALT 22 units/L (7-56) 07/12/21 05:52 Alkaline Phosphatase 95 units/L (35-129) 07/12/21 05:52 Total Protein 8.0 g/dL (6.3-8.2) 07/12/21 05:52 Albumin 4.0 g/dL (3.9-5) 07/12/21 05:52 Albumin/Globulin Ratio 1.0 % 07/12/21 05:52 Triglycerides 75 mg/dL (2-149) 07/12/21 05:52 Cholesterol 143 mg/dL (50-199) 07/12/21 05:52 LDL Cholesterol Direct 60 mg/dL (50-130) 07/12/21 05:52 HDL Cholesterol 62 mg/dL (40-59) H 07/12/21 05:52 Cholesterol/HDL Ratio 2.30 % 07/12/21 05:52 TSH 2.500 mlU/mL (0.270-4.200) 07/12/21 05:52 Urine Color Lauren (Yellow) 07/11/21 21:00 Urine Turbidity Cloudy (Clear) 07/11/21 21:00 Urine pH 5.0 (5.0-7.0) 07/11/21 21:00 Ur Specific [place] 1.021 (1.003-1.030) 07/11/21 21:00 Urine Protein 30 mg/dl mg/dL (Negative) 07/11/21 21:00 Urine Glucose (UA) Neg mg/dL (Negative) 07/11/21 21:00 Urine Ketones 20 mg/dL (Negative) 07/11/21 21:00 Urine Blood Sm (Negative) 07/11/21 21:00 Urine Nitrite Neg (Negative) 07/11/21 21:00 Urine Bilirubin Neg (Negative) 07/11/21 21:00 Urine Urobilinogen 2.0 mg/dL (<2.0) 07/11/21 21:00 Ur Leukocyte Esterase Mod (Negative) 07/11/21 21:00 Urine WBC (Auto) 23.0 /HPF (0.0-6.0) H 07/11/21 21:00 Urine RBC (Auto) 4.0 /HPF (0.0-6.0) 07/11/21 21:00 U Epithel Cells (Auto) 3.0 /HPF (0-13.0) 07/11/21 21:00 Urine Mucus 2+ /HPF 07/11/21 21:00 Urine Yeast (Budding) 2+ /HPF 07/11/21 21:00 Last Vital Signs Temp 98.6 F 07/14/21 22:00 Pulse 68 07/14/21 22:00 Resp 18 07/14/21 22:00 BP 123/78 07/14/21 22:00 Pulse Ox 97 07/14/21 22:00
[2021-07-15] MEDS: risperiDONE 0.25 MG TAB PO SCH ×3 (09:56→21:25)
[2021-07-15] MEDS: SERTRALINE 50 MG TAB PO SCH (09:56)
[2021-07-15] MEDS: hydroCHLOROthiazide 25 MG TAB PO SCH (09:56)
[2021-07-15] MEDS: levoFLOXacin 500 MG TAB PO SCH (09:56)
[2021-07-15] MEDS: PRAVASTATIN 20 MG TAB PO SCH ×2 (21:19→21:25)
[2021-07-16] MEDS: LEVOTHYROXINE 25 MCG TAB PO SCH (05:51)
--- NOTE | 2021-07-16 08:18 | Progress Note ---
Subjective Date of service: 07/16/21 Principal diagnosis: MDD Subjective Comment: 07/13/2021: The patient was seen today. She is in her room sitting on side of the bed. The patient says she pushed her night table back to keep someone from falling. She says she feels better, but there still seems to be some psychosis. The patient denies hallucinations. But she is observed talking beneath her breath. She says "eat three meals a day and drink plenty of water." When I ask the patient who was she speaking too, she replies "nobody." She denies SI/HI. 07/14/2021:The patient was seen eating breakfast. She reports mood as "nice and quiet." the patient reports that depression is improving " much better." The patient states " I was hallucinating when I came here- staying up too many hours, I just have to remind myself to get some sleep." She reports sleep and appetite as good. The patient denies any current suicidal/homicidal ideation and denies hallucinations. 07/15/2021: The patient was seen in the activity room, she reports doing well. The patient is isolative. The patient reports mood as "calm" states sleep and appetite as good. The patient denies any current suicidal/homicidal ideation and denies hallucinations. No changes made today. 07/16/2021: Patient seen eating breakfast. She reports doing well. The patient continues to present with some confusion. The patient was asked why she is not compliant with medications, she states " my doctor started me on new medications and I was waiting for my daughter to bring it." The patient reports sleep and appetite as good. She denies any current suicidal/homicidal ideation and denies hallucination. Placed Neurology consult. REVIEW OF SYSTEMS Constitutional: Negative for weight loss ENT: Negative for stridor Respiratory: Negative for cough or hemoptysis All other systems reviewed and are negative MENTAL STATUS EXAMINATION General Appearance and Behavior: Age appropriate, good hygiene, wearing maricarmen ropriate clothes, good eye contact Cooperation: Participating/engaged, but Guarded Psychomotor Behavior: Psychomotor normal Mood: "ok" Affect and affective range: Congruent with mood Thought Process: Circumstantial Thought Content: Not suicidal Speech: Normal rate, volume and rhythm Intellectual Functioning: Average Suicidal Ideation: Denies Homicidal Ideation: Denies Hallucinations: Denies Impulse Control: Impaired Insight and Judgment: Limited insight and judgment Memory: Limited Attention: Normal Orientation: Alert, Assessment and Plan (1) Major Depressive Disorder, Severe, with Psychotic Features Current Visit: Yes Status: Acute Treatment Plan Patient admitted for inpatient psychiatric evaluation, medication adjustment and close monitoring The patient's behavior, mood, sleep and appetite will be closely monitored. Patient enrolled in individual and group therapeutic sessions and encouraged to attend. Patient provided with a safe and structured environment. Patient's physical health needs will be addressed by the Hospitalist. Hospitalist Consulted Labs including CBC, CMP, Lipid profile and Hemoglobin A1C levels ordered for baseline reference Social Assessment will be completed and the Cigarette Making Machine Catcher will work with patient and family to ensure a suitable and safe disposition Medication adjustment will be made as clinically indicated Neurology consult placed Continue Risperidone 0.5mg po BID Usual Wellness [employer]/Preservation: - Start Trazodone 50 mg po QHS & 50 mg po QHS PRN between 10 PM & 2 AM for insomnia - Start Melatonin 5 mg po QHS to promote circadian rhythm The patient agreed on the treatment plan, understood the risk, benefit, alternative treatment, potential consequence of no treatment, and gave informed consent. Estimated days: 4 Post hospital care: primary care provider, psychiatric provider Case staffed with Dr. Waller Medications and Allergies Medications and Allergies Allergies Allergy/AdvReac Type Severity Reaction Status Date / Time latex Allergy Unknown Verified 07/11/21 18:48 Home Medications Medication Instructions Recorded Confirmed Last Taken Type Levothyroxine [Synthroid] 25 mcg PO QAM 07/11/21 07/11/21 Unknown History Sertraline [Zoloft] 50 mg PO QDAY 07/11/21 07/11/21 Unknown History Simvastatin 10 mg PO 07/11/21 07/11/21 Unknown History hydroCHLOROthiazide [HCTZ] 25 mg PO DAILY 07/11/21 07/11/21 Unknown History risperiDONE [RisperDAL] 0.5 mg PO 07/11/21 07/11/21 Unknown History Active Meds: Active Medications Hydrochlorothiazide (Hydrochlorothiazide 25 Mg Tab) 25 mg PO DAILY [facility] Last Admin: 07/15/21 09:56 Dose: 25 mg Documented by: Levofloxacin (Levofloxacin 500 Mg Tab) 500 mg PO Q24HR [facility]; Protocol Stop: 07/16/21 11:59 Last Admin: 07/15/21 09:56 Dose: 500 mg Documented by: Levothyroxine Sodium (Levothyroxine 25 Mcg Tab) 25 mcg PO QAM@0600 [facility] Last Admin: 07/16/21 05:51 Dose: 25 mcg Documented by: Pravastatin Sodium (Pravastatin 20 Mg Tab) 20 mg PO QHS [facility] Last Admin: 07/15/21 21:25 Dose: Not Given Documented by: Risperidone (Risperidone 0.25 Mg Tab) 0.5 mg PO BID [facility] Last Admin: 07/15/21 21:25 Dose: Not Given Documented by: Sertraline HCl (Sertraline 50 Mg Tab) 50 mg PO QDAY [facility] Last Admin: 07/15/21 09:56 Dose: 50 mg Documented by: Results - Results Labs/Vitals: Laboratory Last Values WBC 9.9 K/mm3 (4.5-11.0) 07/12/21 05:52 RBC 4.35 M/mm3 (3.65-5.03) 07/12/21 05:52 Hgb 13.3 gm/dl (10.1-14.3) 07/12/21 05:52 Hct 39.7 % (30.3-42.9) 07/12/21 05:52 MCV 91 fl (79-97) 07/12/21 05:52 MCH 31 pg (28-32) 07/12/21 05:52 MCHC 34 % (30-34) 07/12/21 05:52 RDW 14.9 % (13.2-15.2) 07/12/21 05:52 Plt Count 258 K/mm3 (140-440) 07/12/21 05:52 Lymph % (Auto) 19.7 % (13.4-35.0) 07/12/21 05:52 [place] % (Auto) 9.3 % (0.0-7.3) H 07/12/21 05:52 Eos % (Auto) 0.3 % (0.0-4.3) 07/12/21 05:52 Baso % (Auto) 0.4 % (0.0-1.8) 07/12/21 05:52 Lymph # (Auto) 1.9 K/mm3 (1.2-5.4) 07/12/21 05:52 [place] # (Auto) 0.9 K/mm3 (0.0-0.8) H 07/12/21 05:52 Eos # (Auto) 0.0 K/mm3 (0.0-0.4) 07/12/21 05:52 Baso # (Auto) 0.0 K/mm3 (0.0-0.1) 07/12/21 05:52 Seg Neutrophils % 70.3 % (40.0-70.0) H 07/12/21 05:52 Seg Neutrophils # 6.9 K/mm3 (1.8-7.7) 07/12/21 05:52 Sodium 141 mmol/L (137-145) 07/12/21 05:52 Potassium 3.7 mmol/L (3.6-5.0) 07/12/21 05:52 Chloride 96.9 mmol/L (98-107) L 07/12/21 05:52 Carbon Dioxide 32 mmol/L (22-30) H 07/12/21 05:52 Anion Gap 16 mmol/L 07/12/21 05:52 BUN 21 mg/dL (7-17) H 07/12/21 05:52 Creatinine 0.8 mg/dL (0.6-1.2) 07/12/21 05:52 Estimated GFR > 60 ml/min 07/12/21 05:52 BUN/Creatinine Ratio 26 % 07/12/21 05:52 Glucose 105 mg/dL (65-100) H 07/12/21 05:52 POC Glucose 95 mg/dL (70-105) 07/11/21 21:27 Hemoglobin A1c 5.9 % (4-6) 07/12/21 05:52 Calcium 9.7 mg/dL (8.4-10.2) 07/12/21 05:52 Total Bilirubin 0.50 mg/dL (0.1-1.2) 07/12/21 05:52 AST 44 units/L (5-40) H 07/12/21 05:52 ALT 22 units/L (7-56) 07/12/21 05:52 Alkaline Phosphatase 95 units/L (35-129) 07/12/21 05:52 Total Protein 8.0 g/dL (6.3-8.2) 07/12/21 05:52 Albumin 4.0 g/dL (3.9-5) 07/12/21 05:52 Albumin/Globulin Ratio 1.0 % 07/12/21 05:52 Triglycerides 75 mg/dL (2-149) 07/12/21 05:52 Cholesterol 143 mg/dL (50-199) 07/12/21 05:52 LDL Cholesterol Direct 60 mg/dL (50-130) 07/12/21 05:52 HDL Cholesterol 62 mg/dL (40-59) H 07/12/21 05:52 Cholesterol/HDL Ratio 2.30 % 07/12/21 05:52 TSH 2.500 mlU/mL (0.270-4.200) 07/12/21 05:52 Urine Color Lauren (Yellow) 07/11/21 21:00 Urine Turbidity Cloudy (Clear) 07/11/21 21:00 Urine pH 5.0 (5.0-7.0) 07/11/21 21:00 Ur Specific [place] 1.021 (1.003-1.030) 07/11/21 21:00 Urine Protein 30 mg/dl mg/dL (Negative) 07/11/21 21:00 Urine Glucose (UA) Neg mg/dL (Negative) 07/11/21 21:00 Urine Ketones 20 mg/dL (Negative) 07/11/21 21:00 Urine Blood Sm (Negative) 07/11/21 21:00 Urine Nitrite Neg (Negative) 07/11/21 21:00 Urine Bilirubin Neg (Negative) 07/11/21 21:00 Urine Urobilinogen 2.0 mg/dL (<2.0) 07/11/21 21:00 Ur Leukocyte Esterase Mod (Negative) 07/11/21 21:00 Urine WBC (Auto) 23.0 /HPF (0.0-6.0) H 07/11/21 21:00 Urine RBC (Auto) 4.0 /HPF (0.0-6.0) 07/11/21 21:00 U Epithel Cells (Auto) 3.0 /HPF (0-13.0) 07/11/21 21:00 Urine Mucus 2+ /HPF 07/11/21 21:00 Urine Yeast (Budding) 2+ /HPF 07/11/21 21:00 Last Vital Signs Temp 99.0 F 07/16/21 07:56 Pulse 105 H 07/16/21 07:56 Resp 16 07/16/21 07:56 BP 118/72 07/16/21 07:56 Pulse Ox 99 07/16/21 07:56
[2021-07-16] MEDS: levoFLOXacin 500 MG TAB PO SCH (09:53)
[2021-07-16] MEDS: risperiDONE 0.25 MG TAB PO SCH ×2 (09:53→21:34)
[2021-07-16] MEDS: hydroCHLOROthiazide 25 MG TAB PO SCH (09:53)
[2021-07-16] MEDS: SERTRALINE 50 MG TAB PO SCH (09:53)
[2021-07-16] MEDS: PRAVASTATIN 20 MG TAB PO SCH (21:34)
[2021-07-17] MEDS: LEVOTHYROXINE 25 MCG TAB PO SCH (05:32)
--- NOTE | 2021-07-17 09:01 | Progress Note ---
Subjective Date of service: 07/17/21 Principal diagnosis: MDD Subjective Comment: 07/13/2021: The patient was seen today. She is in her room sitting on side of the bed. The patient says she pushed her night table back to keep someone from falling. She says she feels better, but there still seems to be some psychosis. The patient denies hallucinations. But she is observed talking beneath her breath. She says "eat three meals a day and drink plenty of water." When I ask the patient who was she speaking too, she replies "nobody." She denies SI/HI. 07/14/2021:The patient was seen eating breakfast. She reports mood as "nice and quiet." the patient reports that depression is improving " much better." The patient states " I was hallucinating when I came here- staying up too many hours, I just have to remind myself to get some sleep." She reports sleep and appetite as good. The patient denies any current suicidal/homicidal ideation and denies hallucinations. 07/15/2021: The patient was seen in the activity room, she reports doing well. The patient is isolative. The patient reports mood as "calm" states sleep and appetite as good. The patient denies any current suicidal/homicidal ideation and denies hallucinations. No changes made today. 07/16/2021: Patient seen eating breakfast. She reports doing well. The patient continues to present with some confusion. The patient was asked why she is not compliant with medications, she states " my doctor started me on new medications and I was waiting for my daughter to bring it." The patient reports sleep and appetite as good. She denies any current suicidal/homicidal ideation and denies hallucination. Placed Neurology consult. 07/17/2021: The patient seen this morning, she reports doing well. The patient is isolative and labile. The patient reports sleep and appetite as good. She denies any current suicidal/homicidal ideation and denies hallucination. REVIEW OF SYSTEMS Constitutional: Negative for weight loss ENT: Negative for stridor Respiratory: Negative for cough or hemoptysis All other systems reviewed and are negative MENTAL STATUS EXAMINATION General Appearance and Behavior: Age appropriate, good hygiene, wearing appropriate clothes, good eye contact Cooperation: Participating/engaged, but Guarded Psychomotor Behavior: Psychomotor normal Mood: "ok" Affect and affective range: Incongruent with mood Thought Process: labile Thought Content: Not suicidal Speech: Normal rate, volume and rhythm Intellectual Functioning: Average Suicidal Ideation: Denies Homicidal Ideation: Denies Hallucinations: Denies Impulse Control: Impaired Insight and Judgment: Limited insight and judgment Memory: Limited Attention: Normal Orientation: Alert, Assessment and Plan (1) Major Depressive Disorder, Severe, with Psychotic Features Current Visit: Yes Status: Acute Treatment Plan Patient admitted for inpatient psychiatric evaluation, medication adjustment and close monitoring The patient's behavior, mood, sleep and appetite will be closely monitored. Patient enrolled in individual and group therapeutic sessions and encouraged to attend. Patient provided with a safe and structured environment. Patient's physical health needs will be addressed by the Hospitalist. Hospitalist Consulted Labs including CBC, CMP, Lipid profile and Hemoglobin A1C levels ordered for baseline reference Social Assessment will be completed and the Farm Machine Operator will work with patient and family to ensure a suitable and safe disposition Medication adjustment will be made as clinically indicated Start Depakote DR 125mg po BID Neurology consult placed Continue Risperidone 0.5mg po BID Usual Wellness [employer]/Preservation: - Start Trazodone 50 mg po QHS & 50 mg po QHS PRN between 10 PM & 2 AM for insomnia - Start Melatonin 5 mg po QHS to promote circadian rhythm The patient agreed on the treatment plan, understood the risk, benefit, alternative treatment, potential consequence of no treatment, and gave informed consent. Estimated days: 4 Post hospital care: primary care provider, psychiatric provider Case staffed with Dr. Waller Medications and Allergies Medications and Aller Medications and Allergies Allergies Allergy/AdvReac Type Severity Reaction Status Date / Time latex Allergy Unknown Verified 07/11/21 18:48 Home Medications Medication Instructions Recorded Confirmed Last Taken Type Levothyroxine [Synthroid] 25 mcg PO QAM 07/11/21 07/11/21 Unknown History Sertraline [Zoloft] 50 mg PO QDAY 07/11/21 07/11/21 Unknown History Simvastatin 10 mg PO HS 07/11/21 07/11/21 Unknown History hydroCHLOROthiazide [HCTZ] 25 mg PO DAILY 07/11/21 07/11/21 Unknown History risperiDONE [RisperDAL] 0.5 mg PO HS 07/11/21 07/11/21 Unknown History Active Meds: Active Medications Hydrochlorothiazide (Hydrochlorothiazide 25 Mg Tab) 25 mg PO DAILY [facility] Last Admin: 07/16/21 09:53 Dose: 25 mg Documented by: Levothyroxine Sodium (Levothyroxine 25 Mcg Tab) 25 mcg PO QAM@0600 [facility] Last Admin: 07/17/21 05:32 Dose: 25 mcg Documented by: Pravastatin Sodium (Pravastatin 20 Mg Tab) 20 mg PO QHS [facility] Last Admin: 07/16/21 21:34 Dose: 20 mg Documented by: Risperidone (Risperidone 0.25 Mg Tab) 0.5 mg PO BID [facility] Last Admin: 07/16/21 21:34 Dose: 0.5 mg Documented by: Sertraline HCl (Sertraline 50 Mg Tab) 50 mg PO QDAY [facility] Last Admin: 07/16/21 09:53 Dose: 50 mg Documented by: Results - Results Labs/Vitals: Laboratory Last Values WBC 9.9 K/mm3 (4.5-11.0) 07/12/21 05:52 RBC 4.35 M/mm3 (3.65-5.03) 07/12/21 05:52 Hgb 13.3 gm/dl (10.1-14.3) 07/12/21 05:52 Hct 39.7 % (30.3-42.9) 07/12/21 05:52 MCV 91 fl (79-97) 07/12/21 05:52 MCH 31 pg (28-32) 07/12/21 05:52 MCHC 34 % (30-34) 07/12/21 05:52 RDW 14.9 % (13.2-15.2) 07/12/21 05:52 Plt Count 258 K/mm3 (140-440) 07/12/21 05:52 Lymph % (Auto) 19.7 % (13.4-35.0) 07/12/21 05:52 [place] % (Auto) 9.3 % (0.0-7.3) H 07/12/21 05:52 Eos % (Auto) 0.3 % (0.0-4.3) 07/12/21 05:52 Baso % (Auto) 0.4 % (0.0-1.8) 07/12/21 05:52 Lymph # (Auto) 1.9 K/mm3 (1.2-5.4) 07/12/21 05:52 [place] # (Auto) 0.9 K/mm3 (0.0-0.8) H 07/12/21 05:52 Eos # (Auto) 0.0 K/mm3 (0.0-0.4) 07/12/21 05:52 Baso # (Auto) 0.0 K/mm3 (0.0-0.1) 07/12/21 05:52 Seg Neutrophils % 70.3 % (40.0-70.0) H 07/12/21 05:52 Seg Neutrophils # 6.9 K/mm3 (1.8-7.7) 07/12/21 05:52 Sodium 141 mmol/L (137-145) 07/12/21 05:52 Potassium 3.7 mmol/L (3.6-5.0) 07/12/21 05:52 Chloride 96.9 mmol/L (98-107) L 07/12/21 05:52 Carbon Dioxide 32 mmol/L (22-30) H 07/12/21 05:52 Anion Gap 16 mmol/L 07/12/21 05:52 BUN 21 mg/dL (7-17) H 07/12/21 05:52 Creatinine 0.8 mg/dL (0.6-1.2) 07/12/21 05:52 Estimated GFR > 60 ml/min 07/12/21 05:52 BUN/Creatinine Ratio 26 % 07/12/21 05:52 Glucose 105 mg/dL (65-100) H 07/12/21 05:52 POC Glucose 95 mg/dL (70-105) 07/11/21 21:27 Hemoglobin A1c 5.9 % (4-6) 07/12/21 05:52 Calcium 9.7 mg/dL (8.4-10.2) 07/12/21 05:52 Total Bilirubin 0.50 mg/dL (0.1-1.2) 07/12/21 05:52 AST 44 units/L (5-40) H 07/12/21 05:52 ALT 22 units/L (7-56) 07/12/21 05:52 Alkaline Phosphatase 95 units/L (35-129) 07/12/21 05:52 Total Protein 8.0 g/dL (6.3-8.2) 07/12/21 05:52 Albumin 4.0 g/dL (3.9-5) 07/12/21 05:52 Albumin/Globulin Ratio 1.0 % 07/12/21 05:52 Triglycerides 75 mg/dL (2-149) 07/12/21 05:52 Cholesterol 143 mg/dL (50-199) 07/12/21 05:52 LDL Cholesterol Direct 60 mg/dL (50-130) 07/12/21 05:52 HDL Cholesterol 62 mg/dL (40-59) H 07/12/21 05:52 Cholesterol/HDL Ratio 2.30 % 07/12/21 05:52 TSH 2.500 mlU/mL (0.270-4.200) 07/12/21 05:52 Urine Color [place] (Yellow) 07/11/21 21:00 Urine Turbidity Cloudy (Clear) 07/11/21 21:00 Urine pH 5.0 (5.0-7.0) 07/11/21 21:00 Ur Specific [place] 1.021 (1.003-1.030) 07/11/21 21:00 Urine Protein 30 mg/dl mg/dL (Negative) 07/11/21 21:00 Urine Glucose (UA) Neg mg/dL (Negative) 07/11/21 21:00 Urine Ketones 20 mg/dL (Negative) 07/11/21 21:00 Urine Blood Sm (Negative) 07/11/21 21:00 Urine Nitrite Neg (Negative) 07/11/21 21:00 Urine Bilirubin Neg (Negative) 07/11/21 21:00 Urine Urobilinogen 2.0 mg/dL (<2.0) 07/11/21 21:00 Ur Leukocyte Esterase Mod (Negative) 07/11/21 21:00 Urine WBC (Auto) 23.0 /HPF (0.0-6.0) H 07/11/21 21:00 Urine RBC (Auto) 4.0 /HPF (0.0-6.0) 07/11/21 21:00 U Epithel Cells (Auto) 3.0 /HPF (0-13.0) 07/11/21 21:00 Urine Mucus 2+ /HPF 07/11/21 21:00 Urine Yeast (Budding) 2+ /HPF 07/11/21 21:00 Last Vital Signs Temp 98.7 F 07/16/21 19:29 Pulse 58 L 07/16/21 19:29 Resp 16 10/03/21 19:29 BP 100/71 07/16/21 19:29 Pulse Ox 98 07/16/21 19:29
[2021-07-17] MEDS: risperiDONE 0.25 MG TAB PO SCH ×2 (10:27→20:59)
[2021-07-17] MEDS: hydroCHLOROthiazide 25 MG TAB PO SCH (10:27)
[2021-07-17] MEDS: SERTRALINE 50 MG TAB PO SCH (12:30)
[2021-07-17] MEDS: DIVALPROEX DR 125 MG TAB PO SCH ×2 (12:30→20:59)
[2021-07-17] MEDS: PRAVASTATIN 20 MG TAB PO SCH (20:59)
[2021-07-18] MEDS: LEVOTHYROXINE 25 MCG TAB PO SCH (06:04)
--- NOTE | 2021-07-18 10:19 | Progress Note ---
Subjective Date of service: 07/18/21 Principal diagnosis: MDD Subjective Comment: 07/13/2021: The patient was seen today. She is in her room sitting on side of the bed. The patient says she pushed her night table back to keep someone from falling. She says she feels better, but there still seems to be some psychosis. The patient denies hallucinations. But she is observed talking beneath her breath. She says "eat three meals a day and drink plenty of water." When I ask the patient who was she speaking too, she replies "nobody." She denies SI/HI. 07/14/2021:The patient was seen eating breakfast. She reports mood as "nice and quiet." the patient reports that depression is improving " much better." The patient states " I was hallucinating when I came here- staying up too many hours, I just have to remind myself to get some sleep." She reports sleep and appetite as good. The patient denies any current suicidal/homicidal ideation and denies hallucinations. 07/15/2021: The patient was seen in the activity room, she reports doing well. The patient is isolative. The patient reports mood as "calm" states sleep and appetite as good. The patient denies any current suicidal/homicidal ideation and denies hallucinations. No changes made today. 07/16/2021: Patient seen eating breakfast. She reports doing well. The patient continues to present with some confusion. The patient was asked why she is not compliant with medications, she states " my doctor started me on new medications and I was waiting for my daughter to bring it." The patient reports sleep and appetite as good. She denies any current suicidal/homicidal ideation and denies hallucination. Placed Neurology consult. 07/17/2021: The patient seen this morning, she reports doing well. The patient is isolative and labile. The patient reports sleep and appetite as good. She denies any current suicidal/homicidal ideation and denies hallucination. 07/18/2021: The patient reports doing well today but states her gout is bothering her toes. She states she was depressed about her who has MS, being the primary health care liaison " he was depending on me to do everything." The patient denies any current suicidal/homicidal ideation and denies hallucination. REVIEW OF SYSTEMS Constitutional: Negative for weight loss ENT: Negative for stridor Respiratory: Negative for cough or hemoptysis All other systems reviewed and are negative MENTAL STATUS EXAMINATION General Appearance and Behavior: Age appropriate, good hygiene, wearing appropriate clothes, good eye contact Cooperation: Participating/engaged, but Guarded Psychomotor Behavior: Psychomotor normal Mood: "fine" Affect and affective range: Incongruent with mood Thought Process: labile Thought Content: Not suicidal Speech: Normal rate, volume and rhythm Intellectual Functioning: Average Suicidal Ideation: Denies Homicidal Ideation: Denies Hallucinations: Denies Impulse Control: Impaired Insight and Judgment: Limited insight and judgment Memory: Limited Attention: Normal Orientation: Alert, Assessment and Plan (1) Major Depressive Disorder, Severe, with Psychotic Features Current Visit: Yes Status: Acute Treatment Plan Patient admitted for inpatient psychiatric evaluation, medication adjustment and close monitoring The patient's behavior, mood, sleep and appetite will be closely monitored. Patient enrolled in individual and group therapeutic sessions and encouraged to attend. Patient provided with a safe and structured environment. Patient's physical health needs will be addressed by the Hospitalist. Hospitalist Consulted Labs including CBC, CMP, Lipid profile and Hemoglobin A1C levels ordered for baseline reference Social Assessment will be completed and the Technical Document Writer will work with patient and family to ensure a suitable and safe disposition Medication adjustment will be made as clinically indicated Start Depakote DR 125mg po BID Neurology consult placed Continue Risperidone 0.5mg po BID Usual Wellness Bahai/Preservation: - Start Trazodone 50 mg po QHS & 50 mg po QHS PRN between 10 PM & 2 AM for insomnia - Start Melatonin 5 mg po QHS to promote circadian rhythm The patient agreed on the treatment plan, understood the risk, benefit, alternative treatment, potential consequence of no treatment, and gave informed consent. Estimated days: 4 Post hospital care: primary care provider, psychiatric provider Case staffed with Dr. Waller Medications and Allergies Medications and Aller Medications and Allergies Medications and Allergies Allergies Allergy/AdvReac Type Severity Reaction Status Date / Time latex Allergy Unknown Verified 07/11/21 18:48 Home Medications Medication Instructions Recorded Confirmed Last Taken Type Levothyroxine [Synthroid] 25 mcg PO QAM 07/11/21 07/11/21 Unknown History Sertraline [Zoloft] 50 mg PO QDAY 07/11/21 07/11/21 Unknown History Simvastatin 10 mg PO HS 07/11/21 07/11/21 Unknown History hydroCHLOROthiazide [HCTZ] 25 mg PO DAILY 07/11/21 07/11/21 Unknown History risperiDONE [RisperDAL] 0.5 mg PO HS 07/11/21 07/11/21 Unknown History Active Meds: Active Medications Divalproex Sodium (Divalproex Dr 125 Mg Tab) 125 mg PO BID [facility] Last Admin: 07/17/21 20:59 Dose: 125 mg Documented by: Hydrochlorothiazide (Hydrochlorothiazide 25 Mg Tab) 25 mg PO DAILY [facility] Last Admin: 07/17/21 10:27 Dose: 25 mg Documented by: Levothyroxine Sodium (Levothyroxine 25 Mcg Tab) 25 mcg PO QAM@0600 [facility] Last Admin: 07/18/21 06:04 Dose: 25 mcg Documented by: Pravastatin Sodium (Pravastatin 20 Mg Tab) 20 mg PO QHS [facility] Last Admin: 07/17/21 20:59 Dose: 20 mg Documented by: Risperidone (Risperidone 0.25 Mg Tab) 0.5 mg PO BID [facility] Last Admin: 07/17/21 20:59 Dose: 0.5 mg Documented by: Sertraline HCl (Sertraline 50 Mg Tab) 50 mg PO QDAY [facility] Last Admin: 07/17/21 12:30 Dose: 50 mg Documented by: Results - Results Labs/Vitals: Laboratory Last Values WBC 9.9 K/mm3 (4.5-11.0) 07/12/21 05:52 RBC 4.35 M/mm3 (3.65-5.03) 07/12/21 05:52 Hgb 13.3 gm/dl (10.1-14.3) 07/12/21 05:52 Hct 39.7 % (30.3-42.9) 07/12/21 05:52 MCV 91 fl (79-97) 07/12/21 05:52 MCH 31 pg (28-32) 07/12/21 05:52 MCHC 34 % (30-34) 07/12/21 05:52 RDW 14.9 % (13.2-15.2) 07/12/21 05:52 Plt Count 258 K/mm3 (140-440) 07/12/21 05:52 Lymph % (Auto) 19.7 % (13.4-35.0) 07/12/21 05:52 [place] % (Auto) 9.3 % (0.0-7.3) H 07/12/21 05:52 Eos % (Auto) 0.3 % (0.0-4.3) 07/12/21 05:52 Baso % (Auto) 0.4 % (0.0-1.8) 07/12/21 05:52 Lymph # (Auto) 1.9 K/mm3 (1.2-5.4) 07/12/21 05:52 [place] # (Auto) 0.9 K/mm3 (0.0-0.8) H 07/12/21 05:52 Eos # (Auto) 0.0 K/mm3 (0.0-0.4) 07/12/21 05:52 Baso # (Auto) 0.0 K/mm3 (0.0-0.1) 07/12/21 05:52 Seg Neutrophils % 70.3 % (40.0-70.0) H 07/12/21 05:52 Seg Neutrophils # 6.9 K/mm3 (1.8-7.7) 07/12/21 05:52 Sodium 141 mmol/L (137-145) 07/12/21 05:52 Potassium 3.7 mmol/L (3.6-5.0) 07/12/21 05:52 Chloride 96.9 mmol/L (98-107) L 07/12/21 05:52 Carbon Dioxide 32 mmol/L (22-30) H 07/12/21 05:52 Anion Gap 16 mmol/L 07/12/21 05:52 BUN 21 mg/dL (7-17) H 07/12/21 05:52 Creatinine 0.8 mg/dL (0.6-1.2) 07/12/21 05:52 Estimated GFR > 60 ml/min 07/12/21 05:52 BUN/Creatinine Ratio 26 % 07/12/21 05:52 Glucose 105 mg/dL (65-100) H 07/12/21 05:52 POC Glucose 95 mg/dL (70-105) 07/11/21 21:27 Hemoglobin A1c 5.9 % (4-6) 07/12/21 05:52 Calcium 9.7 mg/dL (8.4-10.2) 07/12/21 05:52 Total Bilirubin 0.50 mg/dL (0.1-1.2) 07/12/21 05:52 AST 44 units/L (5-40) H 07/12/21 05:52 ALT 22 units/L (7-56) 07/12/21 05:52 Alkaline Phosphatase 95 units/L (35-129) 07/12/21 05:52 Total Protein 8.0 g/dL (6.3-8.2) 07/12/21 05:52 Albumin 4.0 g/dL (3.9-5) 07/12/21 05:52 Albumin/Globulin Ratio 1.0 % 07/12/21 05:52 Triglycerides 75 mg/dL (2-149) 07/12/21 05:52 Cholesterol 143 mg/dL (50-199) 07/12/21 05:52 LDL Cholesterol Direct 60 mg/dL (50-130) 07/12/21 05:52 HDL Cholesterol 62 mg/dL (40-59) H 07/12/21 05:52 Cholesterol/HDL Ratio 2.30 % 07/12/21 05:52 TSH 2.500 mlU/mL (0.270-4.200) 07/12/21 05:52 Urine Color Lauren (Yellow) 07/11/21 21:00 Urine Turbidity Cloudy (Clear) 07/11/21 21:00 Urine pH 5.0 (5.0-7.0) 07/11/21 21:00 Ur Specific [place] 1.021 (1.003-1.030) 07/11/21 21:00 Urine Protein 30 mg/dl mg/dL (Negative) 07/11/21 21:00 Urine Glucose (UA) Neg mg/dL (Negative) 07/11/21 21:00 Urine Ketones 20 mg/dL (Negative) 07/11/21 21:00 Urine Blood Sm (Negative) 07/11/21 21:00 Urine Nitrite Neg (Negative) 07/11/21 21:00 Urine Bilirubin Neg (Negative) 07/11/21 21:00 Urine Urobilinogen 2.0 mg/dL (<2.0) 07/11/21 21:00 Ur Leukocyte Esterase Mod (Negative) 07/11/21 21:00 Urine WBC (Auto) 23.0 /HPF (0.0-6.0) H 07/11/21 21:00 Urine RBC (Auto) 4.0 /HPF (0.0-6.0) 07/11/21 21:00 U Epithel Cells (Auto) 3.0 /HPF (0-13.0) 07/11/21 21:00 Urine Mucus 2+ /HPF 07/11/21 21:00 Urine Yeast (Budding) 2+ /HPF 07/11/21 21:00 Last Vital Signs Temp 97.9 F 07/17/21 19:51 Pulse 118 H 07/17/21 19:51 Resp 18 07/17/21 19:51 BP 107/64 07/17/21 19:51 Pulse Ox 91 07/17/21 19:51
[2021-07-18] MEDS: risperiDONE 0.25 MG TAB PO SCH ×2 (11:23→22:27)
[2021-07-18] MEDS: DIVALPROEX DR 125 MG TAB PO SCH ×2 (11:23→22:28)
[2021-07-18] MEDS: hydroCHLOROthiazide 25 MG TAB PO SCH (11:23)
[2021-07-18] MEDS: SERTRALINE 50 MG TAB PO SCH (11:23)
[2021-07-18] MEDS: PRAVASTATIN 20 MG TAB PO SCH (22:27)
[2021-07-19] MEDS: LEVOTHYROXINE 25 MCG TAB PO SCH (06:17)
[2021-07-19] MEDS: SERTRALINE 50 MG TAB PO SCH (10:30)
[2021-07-19] MEDS: risperiDONE 0.25 MG TAB PO SCH ×2 (10:30→21:10)
[2021-07-19] MEDS: DIVALPROEX DR 125 MG TAB PO SCH ×2 (10:30→21:08)
[2021-07-19] MEDS: hydroCHLOROthiazide 25 MG TAB PO SCH (10:31)
--- NOTE | 2021-07-19 13:31 | Progress Note ---
Subjective Date of service: 07/19/21 Principal diagnosis: MDD Subjective Comment: 07/13/2021: The patient was seen today. She is in her room sitting on side of the bed. The patient says she pushed her night table back to keep someone from falling. She says she feels better, but there still seems to be some psychosis. The patient denies hallucinations. But she is observed talking beneath her breath. She says "eat three meals a day and drink plenty of water." When I ask the patient who was she speaking too, she replies "nobody." She denies SI/HI. 07/14/2021:The patient was seen eating breakfast. She reports mood as "nice and quiet." the patient reports that depression is improving " much better." The patient states " I was hallucinating when I came here- staying up too many hours, I just have to remind myself to get some sleep." She reports sleep and appetite as good. The patient denies any current suicidal/homicidal ideation and denies hallucinations. 07/15/2021: The patient was seen in the activity room, she reports doing well. The patient is isolative. The patient reports mood as "calm" states sleep and appetite as good. The patient denies any current suicidal/homicidal ideation and denies hallucinations. No changes made today. 07/16/2021: Patient seen eating breakfast. She reports doing well. The patient continues to present with some confusion. The patient was asked why she is not compliant with medications, she states " my doctor started me on new medications and I was waiting for my daughter to bring it." The patient reports sleep and appetite as good. She denies any current suicidal/homicidal ideation and denies hallucination. Placed Neurology consult. 07/17/2021: The patient seen this morning, she reports doing well. The patient is isolative and labile. The patient reports sleep and appetite as good. She denies any current suicidal/homicidal ideation and denies hallucination. 07/18/2021: The patient reports doing well today but states her gout is bothering her toes. She states she was depressed about her who has MS, being the primary patient care associate " he was depending on me to do everything." The patient denies any current suicidal/homicidal ideation and denies hallucination. 07/19/2021: The patient reports doing well. she is focused on discharge. She reports appetite as fair and sleep as good. The patient denies any current suicidal/homicidal ideation and denies hallucination. REVIEW OF SYSTEMS Constitutional: Negative for weight loss ENT: Negative for stridor Respiratory: Negative for cough or hemoptysis All other systems reviewed and are negative MENTAL STATUS EXAMINATION General Appearance and Behavior: Age appropriate, good hygiene, wearing appropriate clothes, good eye contact Cooperation: Participating/engaged, but Guarded Psychomotor Behavior: Psychomotor normal Mood: "ok" Affect and affective range: Incongruent with mood Thought Process: labile Thought Content: Not suicidal Speech: Normal rate, volume and rhythm Intellectual Functioning: Average Suicidal Ideation: Denies Homicidal Ideation: Denies Hallucinations: Denies Impulse Control: Impaired Insight and Judgment: Limited insight and judgment Memory: Limited Attention: Normal Orientation: Alert, Assessment and Plan (1) Major Depressive Disorder, Severe, with Psychotic Features Current Visit: Yes Status: Acute Treatment Plan Patient admitted for inpatient psychiatric evaluation, medication adjustment and close monitoring The patient's behavior, mood, sleep and appetite will be closely monitored. Patient enrolled in individual and group therapeutic sessions and encouraged to attend. Patient provided with a safe and structured environment. Patient's physical health needs will be addressed by the Hospitalist. Hospitalist Consulted Labs including CBC, CMP, Lipid profile and Hemoglobin A1C levels ordered for baseline reference Social Assessment will be completed and the Mirror Specialist will work with patient and family to ensure a suitable and safe disposition Medication adjustment will be made as clinically indicated Continue Depakote DR 125mg po BID Neurology consult placed Continue Risperidone 0.5mg po BID Usual Wellness Christianity/Preservation: - Start Trazodone 50 mg po QHS & 50 mg po QHS PRN between 10 PM & 2 AM for insomnia - Start Melatonin 5 mg po QHS to promote circadian rhythm The patient agreed on the treatment plan, understood the risk, benefit, alternative treatment, potential consequence of no treatment, and gave informed consent. Estimated days: 4 Post hospital care: primary care provider, psychiatric provider Case staffed with Dr. Waller Medications and Allergies Medications and Allergies Allergies Allergy/AdvReac Type Severity Reaction Status Date / Time latex Allergy Unknown Verified 07/11/21 18:48 Home Medications Medication Instructions Recorded Confirmed Last Taken Type Levothyroxine [Synthroid] 25 mcg PO QAM 07/11/21 07/11/21 Unknown History Sertraline [Zoloft] 50 mg PO QDAY 07/11/21 07/11/21 Unknown History Simvastatin 10 mg PO HS 07/11/21 07/11/21 Unknown History hydroCHLOROthiazide [HCTZ] 25 mg PO DAILY 07/11/21 07/11/21 Unknown History risperiDONE [RisperDAL] 0.5 mg PO HS 07/11/21 07/11/21 Unknown History Active Meds: Active Medications Divalproex Sodium (Divalproex Dr 125 Mg Tab) 125 mg PO BID [facility] Last Admin: 07/19/21 10:30 Dose: 125 mg Documented by: Hydrochlorothiazide (Hydrochlorothiazide 25 Mg Tab) 25 mg PO DAILY [facility] Last Admin: 07/19/21 10:31 Dose: Not Given Documented by: Levothyroxine Sodium (Levothyroxine 25 Mcg Tab) 25 mcg PO QAM@0600 [facility] Last Admin: 07/19/21 06:17 Dose: 25 mcg Documented by: Pravastatin Sodium (Pravastatin 20 Mg Tab) 20 mg PO QHS [facility] Last Admin: 07/18/21 22:27 Dose: 20 mg Documented by: Risperidone (Risperidone 0.25 Mg Tab) 0.5 mg PO BID [facility] Last Admin: 07/19/21 10:30 Dose: 0.5 mg Documented by: Sertraline HCl (Sertraline 50 Mg Tab) 50 mg PO QDAY [facility] Last Admin: 07/19/21 10:30 Dose: 50 mg Documented by: Results - Results Labs/Vitals: Laboratory Last Values WBC 9.9 K/mm3 (4.5-11.0) 07/12/21 05:52 RBC 4.35 M/mm3 (3.65-5.03) 07/12/21 05:52 Hgb 13.3 gm/dl (10.1-14.3) 07/12/21 05:52 Hct 39.7 % (30.3-42.9) 07/12/21 05:52 MCV 91 fl (79-97) 07/12/21 05:52 MCH 31 pg (28-32) 07/12/21 05:52 MCHC 34 % (30-34) 07/12/21 05:52 RDW 14.9 % (13.2-15.2) 07/12/21 05:52 Plt Count 258 K/mm3 (140-440) 07/12/21 05:52 Lymph % (Auto) 19.7 % (13.4-35.0) 07/12/21 05:52 [place] % (Auto) 9.3 % (0.0-7.3) H 07/12/21 05:52 Eos % (Auto) 0.3 % (0.0-4.3) 07/12/21 05:52 Baso % (Auto) 0.4 % (0.0-1.8) 07/12/21 05:52 Lymph # (Auto) 1.9 K/mm3 (1.2-5.4) 07/12/21 05:52 [place] # (Auto) 0.9 K/mm3 (0.0-0.8) H 07/12/21 05:52 Eos # (Auto) 0.0 K/mm3 (0.0-0.4) 07/12/21 05:52 Baso # (Auto) 0.0 K/mm3 (0.0-0.1) 07/12/21 05:52 Seg Neutrophils % 70.3 % (40.0-70.0) H 07/12/21 05:52 Seg Neutrophils # 6.9 K/mm3 (1.8-7.7) 07/12/21 05:52 Sodium 141 mmol/L (137-145) 07/12/21 05:52 Potassium 3.7 mmol/L (3.6-5.0) 07/12/21 05:52 Chloride 96.9 mmol/L (98-107) L 07/12/21 05:52 Carbon Dioxide 32 mmol/L (22-30) H 07/12/21 05:52 Anion Gap 16 mmol/L 07/12/21 05:52 BUN 21 mg/dL (7-17) H 07/12/21 05:52 Creatinine 0.8 mg/dL (0.6-1.2) 07/12/21 05:52 Estimated GFR > 60 ml/min 07/12/21 05:52 BUN/Creatinine Ratio 26 % 07/12/21 05:52 Glucose 105 mg/dL (65-100) H 07/12/21 05:52 POC Glucose 95 mg/dL (70-105) 07/11/21 21:27 Hemoglobin A1c 5.9 % (4-6) 07/12/21 05:52 Calcium 9.7 mg/dL (8.4-10.2) 07/12/21 05:52 Total Bilirubin 0.50 mg/dL (0.1-1.2) 07/12/21 05:52 AST 44 units/L (5-40) H 07/12/21 05:52 ALT 22 units/L (7-56) 07/12/21 05:52 Alkaline Phosphatase 95 units/L (35-129) 07/12/21 05:52 Total Protein 8.0 g/dL (6.3-8.2) 07/12/21 05:52 Albumin 4.0 g/dL (3.9-5) 07/12/21 05:52 Albumin/Globulin Ratio 1.0 % 07/12/21 05:52 Triglycerides 75 mg/dL (2-149) 07/12/21 05:52 Cholesterol 143 mg/dL (50-199) 07/12/21 05:52 LDL Cholesterol Direct 60 mg/dL (50-130) 07/12/21 05:52 HDL Cholesterol 62 mg/dL (40-59) H 07/12/21 05:52 Cholesterol/HDL Ratio 2.30 % 07/12/21 05:52 TSH 2.500 mlU/mL (0.270-4.200) 07/12/21 05:52 Urine Color Lauren (Yellow) 07/11/21 21:00 Urine Turbidity Cloudy (Clear) 07/11/21 21:00 Urine pH 5.0 (5.0-7.0) 07/11/21 21:00 Ur Specific [place] 1.021 (1.003-1.030) 07/11/21 21:00 Urine Protein 30 mg/dl mg/dL (Negative) 07/11/21 21:00 Urine Glucose (UA) Neg mg/dL (Negative) 07/11/21 21:00 Urine Ketones 20 mg/dL (Negative) 07/11/21 21:00 Urine Blood Sm (Negative) 07/11/21 21:00 Urine Nitrite Neg (Negative) 07/11/21 21:00 Urine Bilirubin Neg (Negative) 07/11/21 21:00 Urine Urobilinogen 2.0 mg/dL (<2.0) 07/11/21 21:00 Ur Leukocyte Esterase Mod (Negative) 09/28/21 21:00 Urine WBC (Auto) 23.0 /HPF (0.0-6.0) H 07/11/21 21:00 Urine RBC (Auto) 4.0 /HPF (0.0-6.0) 07/11/21 21:00 U Epithel Cells (Auto) 3.0 /HPF (0-13.0) 07/11/21 21:00 Urine Mucus 2+ /HPF 07/11/21 21:00 Urine Yeast (Budding) 2+ /HPF 07/11/21 21:00 Last Vital Signs Temp 98.9 F 07/19/21 09:51 Pulse 98 H 07/19/21 09:51 Resp 18 07/19/21 09:51 BP 94/58 07/19/21 09:51 Pulse Ox 98 07/19/21 09:51
[2021-07-19] MEDS: PRAVASTATIN 20 MG TAB PO SCH (21:10)
[2021-07-20] MEDS: LEVOTHYROXINE 25 MCG TAB PO SCH (05:21)
--- NOTE | 2021-07-20 09:21 | Progress Note ---
Subjective Date of service: 07/20/21 Principal diagnosis: MDD Subjective Comment: 07/13/2021: The patient was seen today. She is in her room sitting on side of the bed. The patient says she pushed her night table back to keep someone from falling. She says she feels better, but there still seems to be some psychosis. The patient denies hallucinations. But she is observed talking beneath her breath. She says "eat three meals a day and drink plenty of water." When I ask the patient who was she speaking too, she replies "nobody." She denies SI/HI. 07/14/2021:The patient was seen eating breakfast. She reports mood as "nice and quiet." the patient reports that depression is improving " much better." The patient states " I was hallucinating when I came here- staying up too many hours, I just have to remind myself to get some sleep." She reports sleep and appetite as good. The patient denies any current suicidal/homicidal ideation and denies hallucinations. 07/15/2021: The patient was seen in the activity room, she reports doing well. The patient is isolative. The patient reports mood as "calm" states sleep and appetite as good. The patient denies any current suicidal/homicidal ideation and denies hallucinations. No changes made today. 07/16/2021: Patient seen eating breakfast. She reports doing well. The patient continues to present with some confusion. The patient was asked why she is not compliant with medications, she states " my doctor started me on new medications and I was waiting for my daughter to bring it." The patient reports sleep and appetite as good. She denies any current suicidal/homicidal ideation and denies hallucination. Placed Neurology consult. 07/17/2021: The patient seen this morning, she reports doing well. The patient is isolative and labile. The patient reports sleep and appetite as good. She denies any current suicidal/homicidal ideation and denies hallucination. 07/18/2021: The patient reports doing well today but states her gout is bothering her toes. She states she was depressed about her who has MS, being the primary healthcare consultant " he was depending on me to do everything." The patient denies any current suicidal/homicidal ideation and denies hallucination. 07/19/2021: The patient reports doing well. she is focused on discharge. She reports appetite as fair and sleep as good. The patient denies any current suicidal/homicidal ideation and denies hallucination. 07/20/2021: The patient seen this morning, she is calm. She reports doing well. She reports appetite as fair and sleep as good. The patient denies any current suicidal/homicidal ideation and denies hallucination. REVIEW OF SYSTEMS Constitutional: Negative for weight loss ENT: Negative for stridor Respiratory: Negative for cough or hemoptysis All other systems reviewed and are negative MENTAL STATUS EXAMINATION General Appearance and Behavior: Age appropriate, good hygiene, wearing appropriate clothes, good eye contact Cooperation: Participating/engaged, but Guarded Psychomotor Behavior: Psychomotor normal Mood: "ok" Affect and affective range: Incongruent with mood Thought Process: labile Thought Content: Not suicidal Speech: Normal rate, volume and rhythm Intellectual Functioning: Average Suicidal Ideation: Denies Homicidal Ideation: Denies Hallucinations: Denies Impulse Control: Impaired Insight and Judgment: Limited insight and judgment Memory: Limited Attention: Normal Orientation: Alert, Assessment and Plan (1) Major Depressive Disorder, Severe, with Psychotic Features Current Visit: Yes Status: Acute Treatment Plan Patient admitted for inpatient psychiatric evaluation, medication adjustment and close monitoring The patient's behavior, mood, sleep and appetite will be closely monitored. Patient enrolled in individual and group therapeutic sessions and encouraged to attend. Patient provided with a safe and structured environment. Patient's physical health needs will be addressed by the Hospitalist. Hospitalist Consulted Labs including CBC, CMP, Lipid profile and Hemoglobin A1C levels ordered for baseline reference Social Assessment will be completed and the Color Laboratory Technician will work with patient and family to ensure a suitable and safe disposition Medication adjustment will be made as clinically indicated Continue Depakote DR 125mg po BID Neurology consult placed Continue Risperidone 0.5mg po BID Usual Wellness Pent[employer]alism/Preservation: - Start Trazodone 50 mg po QHS & 50 mg po QHS PRN between 10 PM & 2 AM for insomnia - Start Melatonin 5 mg po QHS to promote circadian rhythm The patient agreed on the treatment plan, understood the risk, benefit, alternative treatment, potential consequence of no treatment, and gave informed consent. Estimated days: 4 Post hospital care: primary care provider, psychiatric provider Case staffed with Dr. Waller Medications and Allergies Medications and Allergies Allergies Allergy/AdvReac Type Severity Reaction Status Date / Time latex Allergy Unknown Verified 07/11/21 18:48 Home Medications Medication Instructions Recorded Confirmed Last Taken Type Levothyroxine [Synthroid] 25 mcg PO QAM 07/11/21 07/11/21 Unknown History Sertraline [Zoloft] 50 mg PO QDAY 07/11/21 07/11/21 Unknown History Simvastatin 10 mg PO HS 07/11/21 07/11/21 Unknown History hydroCHLOROthiazide [HCTZ] 25 mg PO DAILY 07/11/21 07/11/21 Unknown History risperiDONE [RisperDAL] 0.5 mg PO HS 07/11/21 07/11/21 Unknown History Active Meds: Active Medications Divalproex Sodium (Divalproex Dr 125 Mg Tab) 125 mg PO BID [facility] Last Admin: 07/19/21 21:08 Dose: 125 mg Documented by: Hydrochlorothiazide (Hydrochlorothiazide 25 Mg Tab) 25 mg PO DAILY [facility] Last Admin: 07/19/21 10:31 Dose: Not Given Documented by: Levothyroxine Sodium (Levothyroxine 25 Mcg Tab) 25 mcg PO QAM@0600 [facility] Last Admin: 07/20/21 05:21 Dose: 25 mcg Documented by: Pravastatin Sodium (Pravastatin 20 Mg Tab) 20 mg PO QHS [facility] Last Admin: 07/19/21 21:10 Dose: 20 mg Documented by: Risperidone (Risperidone 0.25 Mg Tab) 0.5 mg PO BID [facility] Last Admin: 07/19/21 21:10 Dose: 0.5 mg Documented by: Sertraline HCl (Sertraline 50 Mg Tab) 50 mg PO QDAY [facility] Last Admin: 07/19/21 10:30 Dose: 50 mg Documented by: Results - Results Labs/Vitals: Laboratory Last Values WBC 9.9 K/mm3 (4.5-11.0) 07/12/21 05:52 RBC 4.35 M/mm3 (3.65-5.03) 07/12/21 05:52 Hgb 13.3 gm/dl (10.1-14.3) 07/12/21 05:52 Hct 39.7 % (30.3-42.9) 07/12/21 05:52 MCV 91 fl (79-97) 07/12/21 05:52 MCH 31 pg (28-32) 07/12/21 05:52 MCHC 34 % (30-34) 07/12/21 05:52 RDW 14.9 % (13.2-15.2) 07/12/21 05:52 Plt Count 258 K/mm3 (140-440) 07/12/21 05:52 Lymph % (Auto) 19.7 % (13.4-35.0) 07/12/21 05:52 [place] % (Auto) 9.3 % (0.0-7.3) H 07/12/21 05:52 Eos % (Auto) 0.3 % (0.0-4.3) 07/12/21 05:52 Baso % (Auto) 0.4 % (0.0-1.8) 07/12/21 05:52 Lymph # (Auto) 1.9 K/mm3 (1.2-5.4) 07/12/21 05:52 [place] # (Auto) 0.9 K/mm3 (0.0-0.8) H 07/12/21 05:52 Eos # (Auto) 0.0 K/mm3 (0.0-0.4) 07/12/21 05:52 Baso # (Auto) 0.0 K/mm3 (0.0-0.1) 07/12/21 05:52 Seg Neutrophils % 70.3 % (40.0-70.0) H 07/12/21 05:52 Seg Neutrophils # 6.9 K/mm3 (1.8-7.7) 07/12/21 05:52 Sodium 141 mmol/L (137-145) 07/12/21 05:52 Potassium 3.7 mmol/L (3.6-5.0) 07/12/21 05:52 Chloride 96.9 mmol/L (98-107) L 07/12/21 05:52 Carbon Dioxide 32 mmol/L (22-30) H 07/12/21 05:52 Anion Gap 16 mmol/L 07/12/21 05:52 BUN 21 mg/dL (7-17) H 07/12/21 05:52 Creatinine 0.8 mg/dL (0.6-1.2) 07/12/21 05:52 Estimated GFR > 60 ml/min 07/12/21 05:52 BUN/Creatinine Ratio 26 % 07/12/21 05:52 Glucose 105 mg/dL (65-100) H 07/12/21 05:52 POC Glucose 95 mg/dL (70-105) 07/11/21 21:27 Hemoglobin A1c 5.9 % (4-6) 07/12/21 05:52 Calcium 9.7 mg/dL (8.4-10.2) 07/12/21 05:52 Total Bilirubin 0.50 mg/dL (0.1-1.2) 07/12/21 05:52 AST 44 units/L (5-40) H 07/12/21 05:52 ALT 22 units/L (7-56) 07/12/21 05:52 Alkaline Phosphatase 95 units/L (35-129) 07/12/21 05:52 Total Protein 8.0 g/dL (6.3-8.2) 07/12/21 05:52 Albumin 4.0 g/dL (3.9-5) 07/12/21 05:52 Albumin/Globulin Ratio 1.0 % 07/12/21 05:52 Triglycerides 75 mg/dL (2-149) 07/12/21 05:52 Cholesterol 143 mg/dL (50-199) 07/12/21 05:52 LDL Cholesterol Direct 60 mg/dL (50-130) 07/12/21 05:52 HDL Cholesterol 62 mg/dL (40-59) H 07/12/21 05:52 Cholesterol/HDL Ratio 2.30 % 07/12/21 05:52 TSH 2.500 mlU/mL (0.270-4.200) 07/12/21 05:52 Urine Color Lauren (Yellow) 07/11/21 21:00 Urine Turbidity Cloudy (Clear) 07/11/21 21:00 Urine pH 5.0 (5.0-7.0) 07/11/21 21:00 Ur Specific [place] 1.021 (1.003-1.030) 07/11/21 21:00 Urine Protein 30 mg/dl mg/dL (Negative) 07/11/21 21:00 Urine Glucose (UA) Neg mg/dL (Negative) 07/11/21 21:00 Urine Ketones 20 mg/dL (Negative) 07/11/21 21:00 Urine Blood Sm (Negative) 07/11/21 21:00 Urine Nitrite Neg (Negative) 07/11/21 21:00 Urine Bilirubin Neg (Negative) 07/11/21 21:00 Urine Urobilinogen 2.0 mg/dL (<2.0) 07/11/21 21:00 Ur Leukocyte Esterase Mod (Negative) 07/11/21 21:00 Urine WBC (Auto) 23.0 /HPF (0.0-6.0) H 07/11/21 21:00 Urine RBC (Auto) 4.0 /HPF (0.0-6.0) 07/11/21 21:00 U Epithel Cells (Auto) 3.0 /HPF (0-13.0) 07/11/21 21:00 Urine Mucus 2+ /HPF 07/11/21 21:00 Urine Yeast (Budding) 2+ /HPF 07/11/21 21:00 Last Vital Signs Temp 99.1 F 07/19/21 19:34 Pulse 75 07/19/21 19:34 Resp 16 07/19/21 19:34 BP 108/66 07/19/21 19:34 Pulse Ox 92 07/19/21 19:34
[2021-07-20] MEDS: hydroCHLOROthiazide 25 MG TAB PO SCH (10:07)
[2021-07-20] MEDS: DIVALPROEX DR 125 MG TAB PO SCH ×2 (10:07→22:00)
[2021-07-20] MEDS: risperiDONE 0.25 MG TAB PO SCH ×2 (10:08→22:00)
[2021-07-20] MEDS: SERTRALINE 50 MG TAB PO SCH (10:08)
[2021-07-20] MEDS: PRAVASTATIN 20 MG TAB PO SCH (22:00)
[2021-07-21] MEDS: LEVOTHYROXINE 25 MCG TAB PO SCH (06:09)
--- NOTE | 2021-07-21 09:31 | Progress Note ---
Subjective Date of service: 07/21/21 Principal diagnosis: MDD Subjective Comment: The patient was seen today. She says she feels fine. The patient denies SI/HI or hallucinations. She says she is ready to go home. Will plan for discharge tomorrow once the finalizes outpatient resources to ensue continuity of mental wellness. 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 Patient enrolled in individual and group therapeutic sessions and encouraged to attend. Patient provided with a safe and structured environment. Patient's physical health needs will be addressed by the Hospitalist. Hospitalist Consulted Labs including CBC, CMP, Lipid profile and Hemoglobin A1C levels ordered for baseline reference Social Assessment will be completed and the Shaker Operator will work with patient and family to ensure a suitable and safe disposition Medication adjustment will be made as clinically indicated Continue home medications Usual Wellness Muslim/Preservation: - Start Trazodone 50 mg po QHS & 50 mg po QHS PRN between 10 PM & 2 AM for insomnia - Start Melatonin 5 mg po QHS to promote circadian rhythm The patient agreed on the treatment plan, understood the risk, benefit, alternative treatment, potential consequence of no treatment, and gave informed consent. Estimated days: 5 Post hospital care: primary care provider, psychiatric provider Case staffed with Dr. Waller Medications and Allergies Allergies Allergy/AdvReac Type Severity Reaction Status Date / Time latex Allergy Unknown Verified 07/11/21 18:48 Home Medications Medication Instructions Recorded Confirmed Last Taken Type Levothyroxine [Synthroid] 25 mcg PO QAM 07/11/21 07/11/21 Unknown History Sertraline [Zoloft] 50 mg PO QDAY 07/11/21 07/11/21 Unknown History Simvastatin 10 mg PO HS 07/11/21 07/11/21 Unknown History hydroCHLOROthiazide [HCTZ] 25 mg PO DAILY 07/11/21 07/11/21 Unknown History risperiDONE [RisperDAL] 0.5 mg PO HS 07/11/21 07/11/21 Unknown History Active Meds: Active Medications Divalproex Sodium (Divalproex Dr 125 Mg Tab) 125 mg PO BID [facility] Last Admin: 07/20/21 22:00 Dose: 125 mg Documented by: Hydrochlorothiazide (Hydrochlorothiazide 25 Mg Tab) 25 mg PO DAILY [facility] Last Admin: 07/20/21 10:07 Dose: 25 mg Documented by: Levothyroxine Sodium (Levothyroxine 25 Mcg Tab) 25 mcg PO QAM@0600 [facility] Last Admin: 07/21/21 06:09 Dose: 25 mcg Documented by: Pravastatin Sodium (Pravastatin 20 Mg Tab) 20 mg PO QHS [facility] Last Admin: 07/20/21 22:00 Dose: 20 mg Documented by: Risperidone (Risperidone 0.25 Mg Tab) 0.5 mg PO BID [facility] Last Admin: 07/20/21 22:00 Dose: 0.5 mg Documented by: Sertraline HCl (Sertraline 50 Mg Tab) 50 mg PO QDAY [facility] Last Admin: 07/20/21 10:08 Dose: 50 mg Documented by: Results - Results Labs/Vitals: Laboratory Last Values WBC 9.9 K/mm3 (4.5-11.0) 07/12/21 05:52 RBC 4.35 M/mm3 (3.65-5.03) 07/12/21 05:52 Hgb 13.3 gm/dl (10.1-14.3) 07/12/21 05:52 Hct 39.7 % (30.3-42.9) 07/12/21 05:52 MCV 91 fl (79-97) 07/12/21 05:52 MCH 31 pg (28-32) 07/12/21 05:52 MCHC 34 % (30-34) 07/12/21 05:52 RDW 14.9 % (13.2-15.2) 07/12/21 05:52 Plt Count 258 K/mm3 (140-440) 07/12/21 05:52 Lymph % (Auto) 19.7 % (13.4-35.0) 07/12/21 05:52 [place] % (Auto) 9.3 % (0.0-7.3) H 07/12/21 05:52 Eos % (Auto) 0.3 % (0.0-4.3) 07/12/21 05:52 Baso % (Auto) 0.4 % (0.0-1.8) 07/12/21 05:52 Lymph # (Auto) 1.9 K/mm3 (1.2-5.4) 07/12/21 05:52 [place] # (Auto) 0.9 K/mm3 (0.0-0.8) H 07/12/21 05:52 Eos # (Auto) 0.0 K/mm3 (0.0-0.4) 07/12/21 05:52 Baso # (Auto) 0.0 K/mm3 (0.0-0.1) 07/12/21 05:52 Seg Neutrophils % 70.3 % (40.0-70.0) H 07/12/21 05:52 Seg Neutrophils # 6.9 K/mm3 (1.8-7.7) 07/12/21 05:52 Sodium 141 mmol/L (137-145) 07/12/21 05:52 Potassium 3.7 mmol/L (3.6-5.0) 07/12/21 05:52 Chloride 96.9 mmol/L (98-107) L 07/12/21 05:52 Carbon Dioxide 32 mmol/L (22-30) H 07/12/21 05:52 Anion Gap 16 mmol/L 07/12/21 05:52 BUN 21 mg/dL (7-17) H 07/12/21 05:52 Creatinine 0.8 mg/dL (0.6-1.2) 07/12/21 05:52 Estimated GFR > 60 ml/min 07/12/21 05:52 BUN/Creatinine Ratio 26 % 07/12/21 05:52 Glucose 105 mg/dL (65-100) H 07/12/21 05:52 POC Glucose 95 mg/dL (70-105) 07/11/21 21:27 Hemoglobin A1c 5.9 % (4-6) 07/12/21 05:52 Calcium 9.7 mg/dL (8.4-10.2) 07/12/21 05:52 Total Bilirubin 0.50 mg/dL (0.1-1.2) 07/12/21 05:52 AST 44 units/L (5-40) H 07/12/21 05:52 ALT 22 units/L (7-56) 07/12/21 05:52 Alkaline Phosphatase 95 units/L (35-129) 07/12/21 05:52 Total Protein 8.0 g/dL (6.3-8.2) 07/12/21 05:52 Albumin 4.0 g/dL (3.9-5) 07/12/21 05:52 Albumin/Globulin Ratio 1.0 % 07/12/21 05:52 Triglycerides 75 mg/dL (2-149) 07/12/21 05:52 Cholesterol 143 mg/dL (50-199) 07/12/21 05:52 LDL Cholesterol Direct 60 mg/dL (50-130) 07/12/21 05:52 HDL Cholesterol 62 mg/dL (40-59) H 07/12/21 05:52 Cholesterol/HDL Ratio 2.30 % 07/12/21 05:52 TSH 2.500 mlU/mL (0.270-4.200) 07/12/21 05:52 Urine Color Lauren (Yellow) 07/11/21 21:00 Urine Turbidity Cloudy (Clear) 07/11/21 21:00 Urine pH 5.0 (5.0-7.0) 07/11/21 21:00 Ur Specific [place] 1.021 (1.003-1.030) 07/11/21 21:00 Urine Protein 30 mg/dl mg/dL (Negative) 07/11/21 21:00 Urine Glucose (UA) Neg mg/dL (Negative) 07/11/21 21:00 Urine Ketones 20 mg/dL (Negative) 07/11/21 21:00 Urine Blood Sm (Negative) 07/11/21 21:00 Urine Nitrite Neg (Negative) 07/11/21 21:00 Urine Bilirubin Neg (Negative) 07/11/21 21:00 Urine Urobilinogen 2.0 mg/dL (<2.0) 07/11/21 21:00 Ur Leukocyte Esterase Mod (Negative) 07/11/21 21:00 Urine WBC (Auto) 23.0 /HPF (0.0-6.0) H 07/11/21 21:00 Urine RBC (Auto) 4.0 /HPF (0.0-6.0) 07/11/21 21:00 U Epithel Cells (Auto) 3.0 /HPF (0-13.0) 07/11/21 21:00 Urine Mucus 2+ /HPF 07/11/21 21:00 Urine Yeast (Budding) 2+ /HPF 07/11/21 21:00 Last Vital Signs Temp 99.1 F 07/21/21 07:58 Pulse 94 H 07/21/21 07:59 Resp 18 07/21/21 07:58 BP 108/70 07/21/21 07:58 Pulse Ox 96 07/21/21 07:59
[2021-07-21] MEDS: DIVALPROEX DR 125 MG TAB PO SCH ×2 (10:03→21:30)
[2021-07-21] MEDS: risperiDONE 0.25 MG TAB PO SCH ×2 (10:04→21:31)
[2021-07-21] MEDS: hydroCHLOROthiazide 25 MG TAB PO SCH (10:04)
[2021-07-21] MEDS: SERTRALINE 50 MG TAB PO SCH (10:04)
[2021-07-21] MEDS: PRAVASTATIN 20 MG TAB PO SCH (21:34)
[2021-07-22 01:39] VITALS: BP 107/60
[2021-07-22] MEDS: LEVOTHYROXINE 25 MCG TAB PO SCH (06:20)
[2021-07-22] MEDS: SERTRALINE 50 MG TAB PO SCH (09:42)
[2021-07-22] MEDS: risperiDONE 0.25 MG TAB PO SCH (09:42)
[2021-07-22] MEDS: DIVALPROEX DR 125 MG TAB PO SCH (09:42)
[2021-07-22] MEDS: hydroCHLOROthiazide 25 MG TAB PO SCH (09:42)
--- NOTE | 2021-07-22 10:32 | Discharge Summary ---
Providers - Providers Date of Admission: 07/11/21 21:29 Date of discharge: 07/22/21 Attending physician: NELIDA VOGEL MD 07/11/21 18:28 Consult to Physician [CONS] Routine Comment: Consulting Provider: JAGJIT ARVIZU Physician Instructions: Reason For Exam: manage medical conditions 07/16/21 08:08 Consult to Physician [CONS] Routine Comment: Consulting Provider: NEUROLOGY Rojas VIRAMONTES Physician Instructions: Reason For Exam: Confused/ Sundowning Primary care physician: FOOD AND NUTRITION PROFESSOR Hospitalization Reason for admission: psychosis Admitting Diagnosis: F33.9 - MAJOR DEPRESSIVE DISORDER, RECURRENT, UNSPECIFIED Condition: Stable Hospital course: The patient was provided inpatient psychiatric treatment with safe and supportive care, medication adjustment, adverse effect monitoring, medical evaluations, medical treatments, assessment and psycho-education. The patient's mood, cognition, behavior, moral support are improved and stabilized. St the time of discharge, the patient had no endangering behavior and no debilitating adverse effects. The patient agreed on potential consequences of no treatment and gave informed consent. 07/13/2021: The patient was seen today. She is in her room sitting on side of the bed. The patient says she pushed her night table back to keep someone from falling. She says she feels better, but there still seems to be some psychosis. The patient denies hallucinations. But she is observed talking beneath her breath. She says "eat three meals a day and drink plenty of water." When I ask the patient who was she speaking too, she replies "nobody." She denies SI/HI. 07/14/2021:The patient was seen eating breakfast. She reports mood as "nice and quiet." the patient reports that depression is improving " much better." The patient states " I was hallucinating when I came here- staying up too many hours, I just have to remind myself to get some sleep." She reports sleep and appetite as good. The patient denies any current suicidal/homicidal ideation and denies hallucinations. 07/15/2021: The patient was seen in the activity room, she reports doing well. The patient is isolative. The patient reports mood as "calm" states sleep and appetite as good. The patient denies any current suicidal/homicidal ideation and denies hallucinations. No changes made today. 07/16/2021: Patient seen eating breakfast. She reports doing well. The patient continues to present with some confusion. The patient was asked why she is not compliant with medications, she states " my doctor started me on new medications and I was waiting for my daughter to bring it." The patient reports sleep and appetite as good. She denies any current suicidal/homicidal ideation and denies hallucination. Placed Neurology consult. 07/17/2021: The patient seen this morning, she reports doing well. The patient is isolative and labile. The patient reports sleep and appetite as good. She denies any current suicidal/homicidal ideation and denies hallucination. 07/18/2021: The patient reports doing well today but states her gout is bothering her toes. She states she was depressed about her who has MS, being the primary ocular care technologist " he was depending on me to do everything." The patient denies any current suicidal/homicidal ideation and denies hallucination. 07/19/2021: The patient reports doing well. she is focused on discharge. She reports appetite as fair and sleep as good. The patient denies any current suicidal/homicidal ideation and denies hallucination. 07/20/2021: The patient seen this morning, she is calm. She reports doing well. She reports appetite as fair and sleep as good. The patient denies any current suicidal/homicidal ideation and denies hallucination. 07/21 The patient was seen today. She says she feels fine. The patient denies SI/HI or hallucinations. She says she is ready to go home. Will plan for discharge tomorrow once the finalizes outpatient resources to ensue continuity of mental wellness. 07/22 The patient was seen today. She is calm, cooperative and pleasant. She is excited to be going home. She thanks me. She says she is doing much better and ready to see her family. She denies SI/HI or hallucinations of any kind. The patient says she slept well. Disposition: 01 HOME / SELF CARE / HOMELESS Time spent for discharge: 35 Allergies/Adverse Reactions: Allergies latex Allergy (Verified 07/11/21 18:48) Unknown Vital Signs: Last Vital Signs Temp 99.0 F 07/21/21 19:15 Pulse 103 H 07/21/21 19:15 Resp 18 07/21/21 19:15 BP 107/60 07/21/21 19:15 Pulse Ox 97 07/21/21 19:15 Last Lab: Laboratory Last Values WBC 9.9 K/mm3 (4.5-11.0) 07/12/21 05:52 RBC 4.35 M/mm3 (3.65-5.03) 07/12/21 05:52 Hgb 13.3 gm/dl (10.1-14.3) 07/12/21 05:52 Hct 39.7 % (30.3-42.9) 07/12/21 05:52 MCV 91 fl (79-97) 07/12/21 05:52 MCH 31 pg (28-32) 07/12/21 05:52 MCHC 34 % (30-34) 07/12/21 05:52 RDW 14.9 % (13.2-15.2) 07/12/21 05:52 Plt Count 258 K/mm3 (140-440) 07/12/21 05:52 Lymph % (Auto) 19.7 % (13.4-35.0) 07/12/21 05:52 [place] % (Auto) 9.3 % (0.0-7.3) H 07/12/21 05:52 Eos % (Auto) 0.3 % (0.0-4.3) 07/12/21 05:52 Baso % (Auto) 0.4 % (0.0-1.8) 07/12/21 05:52 Lymph # (Auto) 1.9 K/mm3 (1.2-5.4) 07/12/21 05:52 [place] # (Auto) 0.9 K/mm3 (0.0-0.8) H 07/12/21 05:52 Eos # (Auto) 0.0 K/mm3 (0.0-0.4) 07/12/21 05:52 Baso # (Auto) 0.0 K/mm3 (0.0-0.1) 07/12/21 05:52 Seg Neutrophils % 70.3 % (40.0-70.0) H 07/12/21 05:52 Seg Neutrophils # 6.9 K/mm3 (1.8-7.7) 07/12/21 05:52 Sodium 141 mmol/L (137-145) 07/12/21 05:52 Potassium 3.7 mmol/L (3.6-5.0) 07/12/21 05:52 Chloride 96.9 mmol/L (98-107) L 07/12/21 05:52 Carbon Dioxide 32 mmol/L (22-30) H 07/12/21 05:52 Anion Gap 16 mmol/L 07/12/21 05:52 BUN 21 mg/dL (7-17) H 07/12/21 05:52 Creatinine 0.8 mg/dL (0.6-1.2) 07/12/21 05:52 Estimated GFR > 60 ml/min 07/12/21 05:52 BUN/Creatinine Ratio 26 % 07/12/21 05:52 Glucose 105 mg/dL (65-100) H 07/12/21 05:52 POC Glucose 95 mg/dL (70-105) 07/11/21 21:27 Hemoglobin A1c 5.9 % (4-6) 07/12/21 05:52 Calcium 9.7 mg/dL (8.4-10.2) 07/12/21 05:52 Total Bilirubin 0.50 mg/dL (0.1-1.2) 07/12/21 05:52 AST 44 units/L (5-40) H 07/12/21 05:52 ALT 22 units/L (7-56) 07/12/21 05:52 Alkaline Phosphatase 95 units/L (35-129) 07/12/21 05:52 Total Protein 8.0 g/dL (6.3-8.2) 07/12/21 05:52 Albumin 4.0 g/dL (3.9-5) 07/12/21 05:52 Albumin/Globulin Ratio 1.0 % 07/12/21 05:52 Triglycerides 75 mg/dL (2-149) 07/12/21 05:52 Cholesterol 143 mg/dL (50-199) 07/12/21 05:52 LDL Cholesterol Direct 60 mg/dL (50-130) 07/12/21 05:52 HDL Cholesterol 62 mg/dL (40-59) H 07/12/21 05:52 Cholesterol/HDL Ratio 2.30 % 07/12/21 05:52 TSH 2.500 mlU/mL (0.270-4.200) 07/12/21 05:52 Urine Color Lauren (Yellow) 07/11/21 21:00 Urine Turbidity Cloudy (Clear) 07/11/21 21:00 Urine pH 5.0 (5.0-7.0) 07/11/21 21:00 Ur Specific [place] 1.021 (1.003-1.030) 07/11/21 21:00 Urine Protein 30 mg/dl mg/dL (Negative) 07/11/21 21:00 Urine Glucose (UA) Neg mg/dL (Negative) 07/11/21 21:00 Urine Ketones 20 mg/dL (Negative) 07/11/21 21:00 Urine Blood Sm (Negative) 07/11/21 21:00 Urine Nitrite Neg (Negative) 07/11/21 21:00 Urine Bilirubin Neg (Negative) 07/11/21 21:00 Urine Urobilinogen 2.0 mg/dL (<2.0) 07/11/21 21:00 Ur Leukocyte Esterase Mod (Negative) 07/11/21 21:00 Urine WBC (Auto) 23.0 /HPF (0.0-6.0) H 07/11/21 21:00 Urine RBC (Auto) 4.0 /HPF (0.0-6.0) 07/11/21 21:00 U Epithel Cells (Auto) 3.0 /HPF (0-13.0) 07/11/21 21:00 Urine Mucus 2+ /HPF 07/11/21 21:00 Urine Yeast (Budding) 2+ /HPF 07/11/21 21:00 Core Measure Documentation - Palliative Care Palliative Care/ Comfort Measures: Not Applicable - Core Measures Any of the following diagnoses?: none Exam - Constitutional Vitals: Temp Pulse Resp BP Pulse Ox 99.0 F 103 H 18 107/60 97 07/21/21 19:15 07/21/21 19:15 07/21/21 19:15 07/21/21 19:15 07/21/21 19:15 General appearance: Present: no acute distress - EENT Eyes: Present: PERRL, EOM intact ENT: hearing intact, clear oral mucosa - Neck Neck: Present: supple, normal ROM - Respiratory Respiratory effort: normal Plan Activity: advance as tolerated Weight Bearing Status: Weight Bear as Tolerated Care Plan Goals: Maintain good and stable mental health Plan of Treatment: The patient should be compliant with medications, not to use drugs, and not to drink alcohol. The patient understands that if suicidal ideas, homicidal ideas or any endangering feeling arise, the patient should seek assistance including, but not limited to crisis hotline, and emergency room. Assessment: Major Depressive Disorder Follow up with: PRIMARY CARE, [Primary Care Provider] - 7 Days [address]: [address] [Depakote Dr] 125 mg PO BID #60 tablet risperiDONE [RisperDAL] 0.5 mg PO BID #60 tablet Sertraline [Zoloft] 50 mg PO QDAY #30
== END 2021-07-22 12:15 | disposition home or self-care (01) | DRG 885 ==
LOC: 3A 16:07 → UNDOADMIN 16:07 → 5A 21:29
PROVIDERS: ADMIT Psychiatry & Neurology Psychiatry; ATTEND Psychiatry & Neurology Psychiatry
DX: F33.3 Major depressive disorder, recurrent, severe with psychotic symptoms (principal); N39.0 Urinary tract infection, site not specified; Z20.822 Contact with and (suspected) exposure to COVID-19
CPT/HCPCS: 36415; 80053; 80061; 81001; 82962; 83036; 84443; 85025; 87086; G0378